=== PATIENT | male | born 1935 | race Caucasian/White ===

== ENCOUNTER 2016-11-10 06:37 | Day surgery (SDC) | payer OTHER ==
[2016-11-10] MEDS ORDERED: NS 500 ML IV 500 ML IV ONE (07:28)
[2016-11-10] MEDS ORDERED: TETRACAINE 0.5% OPHTH 1 DOSE AFFEYE ONE ×4 (07:30→10:05)
[2016-11-10] MEDS ORDERED: VIGAMOX 0.5% OPHTH 1 DOSE AFFEYE ONE ×5 (07:35→10:17)
[2016-11-10] MEDS ORDERED: PROLENSA OPHTH 1 DOSE AFFEYE ONE (07:46)
[2016-11-10] MEDS ORDERED: ALPHAGAN-P OPHTH 1 DOSE AFFEYE ONE (07:47)
[2016-11-10] MEDS ORDERED: CYCLOGYL 1% OPHTH 1 DOSE OP ONE ×3 (07:48→07:50)
[2016-11-10] MEDS ORDERED: AK-DILATE 2.5% OPHTH 1 DOSE OP ONE ×3 (07:48→07:50)
[2016-11-10] MEDS ORDERED: MYDRIACIL OPHTH 1 DOSE AFFEYE ONE ×3 (07:48→07:50)
[2016-11-10] MEDS ORDERED: BETADINE OPHTH SOLN 5% EACHEYE ONE (09:54)
[2016-11-10] MEDS ORDERED: ADRENALINE CHL INJ IJ ONE ×2 (10:00→10:05)
[2016-11-10] MEDS ORDERED: DUOVISC IO ONE ×2 (10:00→10:05)
[2016-11-10] MEDS ORDERED: XYLOCAINE-MPF 1% IJ ONE ×2 (10:00→10:05)
[2016-11-10] MEDS ORDERED: BSS OPHTH (PLAIN) 500 ML with VANCOMYCIN HCL 500 MG VIAL 25 MG, ADRENALINE CHL INJ 1 MG IR ONE ×6 (10:00)
[2016-11-10 12:01] VITALS: BP 164/87
== END 2016-11-10 10:45 | disposition home or self-care (01) ==
LOC: SURG1 06:37
PROVIDERS: ATTEND Ophthalmology
PROC: 08RJ3JZ Replacement of Right Lens with Synthetic Substitute, Percutaneous Approach (ICD-10-PCS; principal; 2016-11-10 10:30)
PROC: 08DJ3ZZ Extraction of Right Lens, Percutaneous Approach (ICD-10-PCS; principal; 2016-11-10 10:30)
DX: H25.11 Age-related nuclear cataract, right eye (principal); H25.011 Cortical age-related cataract, right eye
CPT/HCPCS: A4217; J0170; J3370

== ENCOUNTER 2016-12-01 10:19 | Day surgery (SDC) | payer OTHER ==
[2016-12-01] MEDS ORDERED: TETRACAINE 0.5% OPHTH 1 DOSE AFFEYE ONE ×4 (10:35→14:41)
[2016-12-01] MEDS ORDERED: NS 500 ML IV 500 ML IV ONE (10:36)
[2016-12-01] MEDS ORDERED: VIGAMOX 0.5% OPHTH 1 DOSE AFFEYE ONE ×5 (10:36→14:59)
[2016-12-01] MEDS ORDERED: PROLENSA OPHTH 1 DOSE AFFEYE ONE (10:48)
[2016-12-01] MEDS ORDERED: ALPHAGAN-P OPHTH 1 DOSE AFFEYE ONE (10:49)
[2016-12-01] MEDS ORDERED: CYCLOGYL 1% OPHTH 1 DOSE OP ONE ×4 (10:50→10:53)
[2016-12-01] MEDS ORDERED: MYDRIACIL OPHTH 1 DOSE AFFEYE ONE ×4 (10:50→10:53)
[2016-12-01] MEDS ORDERED: AK-DILATE 2.5% OPHTH 1 DOSE OP ONE ×4 (10:50→10:53)
[2016-12-01] MEDS ORDERED: BETADINE OPHTH SOLN 5% EACHEYE ONE (14:23)
[2016-12-01] MEDS ORDERED: ADRENALINE CHL INJ IJ ONE ×2 (14:26→14:41)
[2016-12-01] MEDS ORDERED: XYLOCAINE-MPF 1% IJ ONE ×2 (14:26→14:41)
[2016-12-01] MEDS ORDERED: BSS OPHTH (PLAIN) 500 ML with VANCOMYCIN HCL 500 MG VIAL 25 MG, ADRENALINE CHL INJ 1 MG IR ONE ×6 (14:27)
[2016-12-01] MEDS ORDERED: DUOVISC IO ONE ×2 (14:27→14:41)
[2016-12-01 15:34] VITALS: BP 152/78
== END 2016-12-01 15:25 | disposition home or self-care (01) ==
LOC: SURG1 10:19
PROVIDERS: ATTEND Ophthalmology
PROC: 08RK3JZ Replacement of Left Lens with Synthetic Substitute, Percutaneous Approach (ICD-10-PCS; principal; 2016-12-01 18:15)
PROC: 08DK3ZZ Extraction of Left Lens, Percutaneous Approach (ICD-10-PCS; principal; 2016-12-01 18:15)
DX: H25.12 Age-related nuclear cataract, left eye (principal); H25.012 Cortical age-related cataract, left eye; H25.042 Posterior subcapsular polar age-related cataract, left eye
CPT/HCPCS: 99100; A4217; J0170; J3370

== ENCOUNTER 2016-12-15 14:54 | Observation (INO) | payer OTHER ==
[2016-12-15] MEDS ORDERED: NS 1000 ML 1,000 ML ONE (15:17)
[2016-12-15] MEDS ORDERED: NS 1000 ML 300 ML IV ONE (15:17)
--- NOTE | 2016-12-15 15:17 | DR.GENAD ---
HPI - PCP Primary Care Physician: STEFANIE - HPI Comment HPI Comment: [facility] WAS CONCERN ABOUT RAPID PULSE RATE IN PATIENT. RELATIVES HAVE ALSO NOTICE INCREASING WEAKNESS AND CONFUSION IN PATIENT. TODAY, HE FELL WEAK AND IS SOB ESPECIALLY ON EXERTION. NO FEVER. 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 - Complaint/Symptoms Chief Complaint Doctors Comments: AMS, SOB, CHEST PAIN AND GENERALIZE WEAKNESS FOR 3 DAYS. Chief Complaint:: PT C/O CHEST PAIN AND SOB THAT STARTED X 2-3 DAYS AGO. PT STATES IT IS GETTING WORSE. PT STATES HE ALSO IS HAVING A FEELING LIKE HE HAS TO URINATE, BUT HE CAN'T GO - Nurses notes reviewed Nurses Notes Review: Yes - Source History Provided: Patient - Mode of Arrival Mode of Arrival: Ambulatory - Timing Onset of Chief Complaint: 12/13/16 Came on: Suddenly - Duration Duration: Constant Duration: Days - Severity Severity: Moderate PMH - PMH Past Medical History: Yes Past Medical History: Hypertension, [place] Past Surgical History: Yes Surgical History: CABG/Valve Surgery Past Surgical History Comment: PACE/DEF MAKER - Family History History of Family Medical Conditions: Yes Family Medical History: Heart Failure, Hypertension - Social History Does any household member use tobacco: No Alcohol Use: None Do you use any recreational Drugs:: No Lives With: Family Lives Where: Home - infectious screening In the last 2 months have you had wt loss of >10#?: NO Have you had fever, night sweats or hemotysis?: No Have you traveled outside the country in the last 6 months?: No Isolation: Standard ROS - Review of Systems Constitutional: Weakness, Fatigue, Loss of Appetite. negative: Chills, Fever Eyes: No Symptoms Reported. negative: Eye Pain, Discharge ENTM: No Symptoms Reported. negative: Ear Pain, Nose Discharge, Nose Congestion , Throat Pain Respiratoy: Non-Productive Cough, Short of Breath, Wheezing. negative: Productive Cough, Hemoptysis Cardiovascular: Chest Pain, Palpitations. negative: Syncope Gastrointestinal/Abdominal: Nausea. negative: Abdominal Pain, Diarrhea, Vomiting Genitourinary: negative: Dysuria, Hematuria Neurological: Headache, Weakness, Dizziness Musculoskeletal: Muscle Pain Integumentary: No Symptoms Reported Hematologic/Lymphatic: Easy Bruising Endocrine: No Symptoms Reported All Other Systems: Reviewed and Negative PE - Vital Signs Vitals: Temperature 97.8 F Pulse Rate [Right Radial] 116 Pulse Rate 121 Respiratory Rate 22 Blood Pressure [Left Arm] 94/65 Blood Pressure [Right Arm] 133/63 Blood Pressure 106/66 O2 Sat by Pulse Oximetry 100 - General Limitations: Altered Mental Status General Appearance: Alert, In Distress - Head Head Exam: Normal Inspection - Eyes Eye exam: Normal Appearance - ENT ENT Exam: Normal External Ear Exam External Ear Exam: Normal External Inspection TM/Canal Exam: Bilateral Normal Nose Exam: Normal Nose Exam Mouth Exam: Normal Inspection Throat Exam: Normal Inspection - Neck Neck Exam: Trachea Midline. negative: Tenderness, Meningismus, Lymphadenopathy - Chest Chest Inspection: Symmetric Chest Wall Rise - Respiratory Respiratory Exam: Respiratory Distress Respiratory Exam: Bilateral Wheezing, Bilateral Rhonchi, Upper Rhonchi, Lower Wheezing, Lower Rhonchi - Cardiovascular Cardiovascular Exam: Regular Rate, Normal Rhythm, Normal Heart Sounds - Abdominal Exam Abdominal Exam: Normal Bowel Sounds, Soft. negative: Tenderness - Extremities Extremities Exam: Normal Inspection - Back Back Exam: Normal Inspection - Neurologic Neurological Exam: Alert - Psychiatric Psychiatric Exam: Normal Affect, Normal Mood - Skin Skin Exam: Normal Color MDM - Additional Information Additional Information Obtained From: Family - Differential Diagnosis Differential Diagnosis: RESPIRATORY DISTRESS, CHF, PNEUMONIA, HYPOTENSION CH Course - Treatment Treatment: SEE ORDERS. - Consultation Consultation Comments: DISCUSS PATIENT WITH DR. WATTS . HE WILL ADMIT PATIENT. - Education/Counseling Education/Counseling: Patient, Family, Education Educated On: Treatment, Diagnosis, Needs for Follow Up ROR - Labs Reviewed Laboratory Results Reviewed?: Yes Result Diagrams: 12/16/16 05:50 12/16/16 05:50 Laboratory: WBC 8.1 X10^3/uL (3.6-10.0) 12/15/16 15:10 RBC 4.21 X10^6/uL (4.7-6.0) L 12/15/16 15:10 Hgb 13.2 g/dL (13.5-18.0) L 12/15/16 15:10 Hct 39.5 % (42.0-54.0) L 12/15/16 15:10 MCV 93.9 fL (80.0-100.0) 12/15/16 15:10 MCH 31.5 pg (27.0-34.0) 12/15/16 15:10 MCHC 33.5 g/dL (33.0-35.0) 12/15/16 15:10 RDW 13.2 % (11.6-16.5) 12/15/16 15:10 Plt Count 222 X10^3/uL (150.0-450.0) 12/15/16 15:10 MPV 8.2 fL (7.4-11.0) 12/15/16 15:10 Neut % 57.6 % (42.0-75.0) 12/15/16 15:10 Lymph % 28.3 % (21.0-51.0) 12/15/16 15:10 [place] % 11.7 % (0.0-13.0) 12/15/16 15:10 Eos % 1.7 % (0.9-2.9) 12/15/16 15:10 Baso % 0.7 % (0.2-1.0) 12/15/16 15:10 Neut # 4.6 x10^3/uL (2.2-4.8) 12/15/16 15:10 Lymph # 2.3 X10^3/uL (1.3-2.9) 12/15/16 15:10 [place] # 0.9 x10^3/uL (0.3-0.8) H 12/15/16 15:10 Eos # 0.1 x10^3/uL (0.0-0.2) 12/15/16 15:10 Baso # 0.1 X10^3/uL (0.0-0.1) 12/15/16 15:10 Absolute Nucleated RBC 0.0 /100WBC 12/15/16 15:10 Sodium 144 mmol/L (136-145) 12/15/16 15:10 Corrected Sodium 145 mmol/L (136-145) 12/15/16 15:10 Potassium 4.0 mmol/L (3.5-5.1) 12/15/16 15:10 Chloride 106 mmol/L (98-107) 12/15/16 15:10 Carbon Dioxide 27.9 mmol/L (21-32) 12/15/16 15:10 BUN 23 mg/dL (7-18) H 12/15/16 15:10 Creatinine 1.58 mg/dL (0.70-1.30) H 12/15/16 15:10 Est GFR (MDRD) Af Amer 54 (>60) L 12/15/16 15:10 Est GFR (MDRD) Non-Af 45 (>60) L 12/15/16 15:10 Glucose 123 mg/dL (65-99) H 12/15/16 15:10 Calcium 8.7 mg/dL (8.5-10.1) 12/15/16 15:10 Corrected Calcium 9.3 mg/dL (8.5-10.1) 12/15/16 15:10 Total Bilirubin 0.60 mg/dL (0.2-1.0) 12/15/16 15:10 AST 24 Units/L (15-37) 12/15/16 15:10 ALT 26 Units/L (12-78) 12/15/16 15:10 Alkaline Phosphatase 75 Units/L (46-116) 12/15/16 15:10 Creatine Kinase 95 Units/L (39-308) 12/15/16 15:10 CK-MB (CK-2) 1.3 ng/mL (0-4.0) 12/15/16 15:10 CK/CKMB % Calc 1.4 % (<4) 12/15/16 15:10 Troponin I 0.11 ng/mL (0-1.5) 12/15/16 15:10 B-Natriuretic Peptide 894 pg/mL (0-79) H* 12/15/16 15:10 Total Protein 7.0 g/dL (6.4-8.2) 12/15/16 15:10 Albumin 3.3 g/dL (3.4-5.0) L 12/15/16 15:10 Globulin 3.7 g/dL (2.5-4.5) 12/15/16 15:10 Albumin/Globulin Ratio 0.9 Ratio (1.1-2.1) L 12/15/16 15:10 - XRAY XRAY Interpreted by: Radiologist XRAY Findings: REPORT DISCUSS WITH PATIENT. - EKG Rhythm: ST (EKG NOTED) - Diagnosis Discharge Problem: Hypotension, Chest pain, Dyspnea, Tachycardia - Discharge Plan Disposition: HOME, SELF-CARE Condition: Stable - Follow ups/Referrals - Instructions
[2016-12-15 15:24] LABS: BASOPHILS # (AUTO) 0.1 X10^3/uL (0.0-0.1); BASOPHILS % (AUTO) 0.7 % (0.2-1.0); EOSINOPHILS # (AUTO) 0.1 x10^3/uL (0.0-0.2); EOSINOPHILS % (AUTO) 1.7 % (0.9-2.9); HEMATOCRIT 39.5 % (42.0-54.0); HEMOGLOBIN 13.2 g/dL (13.5-18.0); LYMPHOCYTES # (AUTO) 2.3 X10^3/uL (1.3-2.9); LYMPHOCYTES % (AUTO) 28.3 % (21.0-51.0); MEAN CORPUSCULAR HEMOGLOBIN 31.5 pg (27.0-34.0); MEAN CORPUSCULAR HGB CONC 33.5 g/dL (33.0-35.0); MEAN CORPUSCULAR VOLUME 93.9 fL (80.0-100.0); MEAN PLATELET VOLUME 8.2 fL (7.4-11.0); MONOCYTES # (AUTO) 0.9 x10^3/uL (0.3-0.8); MONOCYTES % (AUTO) 11.7 % (0.0-13.0); NEUTROPHILS # (AUTO) 4.6 x10^3/uL (2.2-4.8); NEUTROPHILS % (AUTO) 57.6 % (42.0-75.0); PLATELET COUNT 222 X10^3/uL (150.0-450.0); RED BLOOD COUNT 4.21 X10^6/uL (4.7-6.0); RED CELL DISTRIBUTION WIDTH 13.2 % (11.6-16.5); WHITE BLOOD COUNT 8.1 X10^3/uL (3.6-10.0)
[2016-12-15 15:40] LABS: CALCIUM 8.7 mg/dL (8.5-10.1); CARBON DIOXIDE 27.9 mmol/L (21-32); CREATININE 1.58 mg/dL (0.70-1.30); TROPONIN I 0.11 ng/mL (0-1.5)
--- NOTE | 2016-12-15 15:48 | RAD ---
HISTORY: Chest pain Study: Chest one view Comparison: September 17, 2015 Findings: There is a pacemaker present on the left obscuring a portion of the lateral aspect of the left lung. The patient is status post median sternotomy and CABG. The heart is enlarged. No congestive heart f ailure is noted. No acute alveolar infiltrates or pleural effusions are identified. IMPRESSION: Cardiomegaly without congestive heart failure Reported By:
[2016-12-15 15:55] LABS: ALBUMIN 3.3 g/dL (3.4-5.0); CKMB % 1.4 % (<4); COR CA(FOR HYPOALB) 9.3 mg/dL (8.5-10.1); CREATINE KINASE MB 1.3 ng/mL (0-4.0)
[2016-12-15] MEDS: NS 1000 ML 1,000 ML IV SCH (18:02)
[2016-12-15] MEDS ORDERED: HumuLIN R SC PRN (18:22)
[2016-12-15 18:45] LABS: CKMB % 1.5 % (<4); CREATINE KINASE MB 1.2 ng/mL (0-4.0); TROPONIN I 0.12 ng/mL (0-1.5)
[2016-12-15 19:49] VITALS: BMI 30.5
[2016-12-15] MEDS ORDERED: LOVENOX INJ 60 MG SYR SC SCH (21:00)
[2016-12-15] MEDS: LOVENOX INJ 80 MG SYR SC SCH (21:10)
[2016-12-15 23:00] LABS: BILIRUBIN,URINE NEGATIVE (NEGATIVE); BLOOD/HEMOGLOBIN,URINE 1+ (NEGATIVE); GLUCOSE, URINE NEGATIVE (NEGATIVE); KETONES,URINE 1+ (NEGATIVE); LEUKOCYTE ESTERASE ,URINE 1+ (NEGATIVE); NITRITES,URINE NEGATIVE (NEGATIVE); PROTEIN,URINE 2+ (NEGATIVE); UROBILINOGEN,URINE NORMAL (NORMAL)
[2016-12-15 23:07] LABS: APPEARANCE,URINE CLEAR (CLEAR); COLOR,URINE YELLOW (YELLOW); RBC,URINE 0-2 /HPF (NEGATIVE); SQUAMOUS EPITHELIAL CELL,UR RARE /HPF (NEGATIVE)
[2016-12-15 23:08] LABS: BACTERIA,URINE 1+ /HPF (NEGATIVE); MUCUS,URINE FEW /HPF (NEGATIVE)
[2016-12-16] MEDS: NS 1000 ML 1,000 ML IV SCH ×4 (00:50→20:29)
[2016-12-16 01:30] LABS: CKMB % 1.7 % (<4); TROPONIN I 0.09 ng/mL (0-1.5)
[2016-12-16 06:20] LABS: BASOPHILS % (AUTO) 0.5 % (0.2-1.0); EOSINOPHILS # (AUTO) 0.2 x10^3/uL (0.0-0.2); EOSINOPHILS % (AUTO) 2.5 % (0.9-2.9); HEMATOCRIT 36.3 % (42.0-54.0); HEMOGLOBIN 12.3 g/dL (13.5-18.0); LYMPHOCYTES # (AUTO) 1.7 X10^3/uL (1.3-2.9); LYMPHOCYTES % (AUTO) 23.7 % (21.0-51.0); MEAN CORPUSCULAR HEMOGLOBIN 31.6 pg (27.0-34.0); MEAN CORPUSCULAR HGB CONC 33.8 g/dL (33.0-35.0); MEAN CORPUSCULAR VOLUME 93.3 fL (80.0-100.0); MEAN PLATELET VOLUME 8.3 fL (7.4-11.0); MONOCYTES # (AUTO) 0.8 x10^3/uL (0.3-0.8); NEUTROPHILS # (AUTO) 4.6 x10^3/uL (2.2-4.8); NEUTROPHILS % (AUTO) 62.3 % (42.0-75.0); PLATELET COUNT 195 X10^3/uL (150.0-450.0); RED BLOOD COUNT 3.89 X10^6/uL (4.7-6.0); RED CELL DISTRIBUTION WIDTH 13.3 % (11.6-16.5); WHITE BLOOD COUNT 7.4 X10^3/uL (3.6-10.0)
[2016-12-16 06:29] LABS: ALANINE AMINOTRANSFERASE 24 Units/L (12-78); ALBUMIN 2.9 g/dL (3.4-5.0); ALKALINE PHOSPHATASE 58 Units/L (46-116); ASPARTATE AMINO TRANSFERASE 18 Units/L (15-37); BLOOD UREA NITROGEN 20 mg/dL (7-18); CALCIUM 8.2 mg/dL (8.5-10.1); CARBON DIOXIDE 27.5 mmol/L (21-32); CHLORIDE 109 mmol/L (98-107); CHOL/HDL RATIO 3.7 (0.0-5.0); CHOLESTEROL 103 mg/dL (0-200); COR CA(FOR HYPOALB) 9.1 mg/dL (8.5-10.1); CREATININE 1.08 mg/dL (0.70-1.30); GLUCOSE 98 mg/dL (65-99); HDL CHOLESTEROL 28 mg/dL (40-60); SODIUM 145 mmol/L (136-145); TOTAL PROTEIN 6.5 g/dL (6.4-8.2); TRIGLYCERIDES 60 mg/dL (0-150); eGFR BLACK RACES > 60 (>60); eGFR NON BLACK RACES > 60 (>60)
[2016-12-16 09:02] LABS: CKMB % 1.8 % (<4); CREATINE KINASE MB 1.1 ng/mL (0-4.0); TROPONIN I 0.07 ng/mL (0-1.5)
[2016-12-16] MEDS: LOVENOX INJ 80 MG SYR SC SCH ×2 (09:21→20:28)
[2016-12-16] MEDS: TOPROL XL PO SCH (10:48)
[2016-12-16] MEDS ORDERED: [UNRECOGNIZED DRUG - OTHER] PO SCH (13:00)
[2016-12-16] MEDS: LASIX PO SCH (14:22)
[2016-12-16] MEDS: PLAVIX PO SCH (14:22)
[2016-12-16] MEDS: MICRO K EXTEN CAP 10 MEQ PO SCH (14:22)
--- NOTE | 2016-12-16 16:43 | DR.H&P ---
H&P - History & Physical for Day of: H&P Date: 12/15/16 - Chief Complaint Chief Complaint: CHEST PAIN, HYPOTENSION, TACHYCARDIA, SHORTNESS OF BREATH - Allergies Allergies/Adverse Reactions: Allergies Allergy/AdvReac Type Severity Reaction Status Date / Time No Known Drug Allergy Allergy Verified 01/01/14 10:56 - History of Present Illness History of Present Illness: THIS IS AN 81 YEAR OLD MALE, WHO IS A PATIENT OF OURS. HE PRESENTS TO OUR EMERGENCY ROOM WITH COMPLAINTS OF TACHYCARDIA, CHEST PAIN, SHORTNESS OF BREATH, AND CONFUSION. FAMILY REPORTS SYMPTOMS HAVE BEEN ON- GOING FOR THREE DAYS. PATIENT REPORTS SYMPTOMS HAVE WORSENED. HEART RATE ON ARRIVAL WAS 121. PATIENT REPORTED HE HAD QUIT TAKING ALL OF HIS MEDICATIONS SOME TIME AGO. BLOOD PRESSURE IS 85/62 IN THE ER. PATIENT REPORTS THE MEDICATIONS MADE HIM NAUSEATED. LABS AND EKG WERE OBTAINED. EKG: SINUS TACHYCARDIA, INCOMPLETE LBBB, RATE 119. CHEST XRAY REPORTS CARDIOMEGALY WITHOUT CHF. CBC WNL EXCEPT: H/H 13.2/39.5. CMP WNL EXCEPT: BUN/CREAT 23/1.58 , GFR 45, GLUCOSE 123, ALBUMIN 3.3. BNP 894. CARDIAC ENZYMES WNL. URINALYSIS WNL. PATIENT RECEIVED AN IV FLUID BOLUS IN ER. WE WILL ADMIT PATIENT FOR FURTHER EVALUATION AND TREATMENT. - Past Medical History Past Medical History: CVA, Hypertension, [place] Additional Medical History: Vision Deficit, Hard of Hearing, Cataracts, Previous Blood Transfusion (after Trama Accident), Skin Cancer - Past Surgical History Surgical History: Angioplasty/Stents, CABG/Valve Surgery Additional Surgical History: Pacemaker/Defibrillator, Facial Recontruction after Trauma Accident - Family History Family Medical History: Heart Failure, Hypertension - Social History Does patient currently use any type of tobacco product: No Have you used tobacco products in the last 12 months: No Type of Tobacco Use: None Does any household member use tobacco: No Alcohol Use: None Drug Use: None - Medications Home Medications: Amlodipine Besylate [NORVASC 5 MG *] 1 tab PO DAILY 09/15/15 Clopidogrel Bisulfate [PLAVIX TAB 75 MG *] 1 tab PO DAILY 09/15/15 Furosemide [LASIX TAB 20 MG *] 1 tab PO DAILY 09/15/15 Gabapentin 1 cap PO HS 09/15/15 Isosorbide Mononitrate [Isosorbide Mononitrate ER] 1 tab PO DAILY 09/15/15 Magnesium 420 tab PO BID 09/15/15 Metoprolol Tartrate [LOPRESSOR 25 MG *] 12.5 mg PO BID 09/15/15 Potassium Chloride [K-Tab] 1 tab PO DAILY 09/15/15 Lisinopril [ZESTRIL *] 10 mg PO BID 12/15/16 - Review of Systems Constitutional: Weakness, Malaise Eyes: No Symptoms Reported. denies: Pain, Vision Change, Conjunctivae Inflammation, Eyelid Inflammation, Redness ENT: No Symptoms Reported. denies: Ear Pain, Ear Discharge, Nose Pain, Nose Discharge, Nose Congestion, Mouth Pain, Mouth Swelling, Throat Pain, Throat Swelling Respiratory: Shortness of Breath, SOB with Excertion. denies: Cough, Hemoptysis , Pleuritic Pain, Sputum, Wheezing Cardiovascular: Chest Pain, Other (Tachycardia). denies: Palpitations, Orthopnea, Paroxysmal Noc. Dyspnea, Edema, Light Headedness Gastrointestinal: No Symptoms Reported. denies: Nausea, Vomiting Genitourinary: No Symptoms Reported. denies: Dysuria, Frequency, Incontinence, Hematuria, Retention Musculoskeletal: No Symptoms Reported. denies: Shoulder Pain, Arm Pain, Back Pain, Hand Pain, Leg Pain, Foot Pain, Neck Pain Skin: No Symptoms Reported. denies: Rash, Lesions, Jaundice, Bruising, Wound, Ecchymosis Neurological: Weakness, Confusion. denies: Numbness, Incoordination, Change in Speech - Physical Exam Vital Signs: Temperature 98.8 F Pulse Rate [Right Radial] 122 Respiratory Rate 30 Blood Pressure [Right Arm] 138/97 O2 Sat by Pulse Oximetry 98 Oriented: Person, Place Eyes: Normal. negative: Blurred Vision, Diplopia, Discharge, Pain, Redness, Photophobia Ear: Normal. negative: Swelling, Ecchymosis, Hemotypanum, Abrasion, Laceration Nose: Normal. negative: Injected, Discharge, Blood Throat: Dry. negative: Tonsillar Hypertrophy, Red, Exudate Respiratory: Clear Throughout Cardiovascular: Normal. negative: Murmur, Edema : Normal. negative: Dysuria, Frequency, Discharge, Testicular Pain Auscultation: Bowel Sounds: Decreased. negative: Bruit Tenderness: Normal. negative: Rebound, Guarding, Rigidity Skin: Decreased [place]. negative: Diaphoresis, Wound, Bruising, Ecchymosis Musculoskeletal: Instability Psychiatric: Normal Mood Description: Calm Affect: Normal Speech Pattern: Clear, Inappropriate - Assessment/Plan (1) Chest pain Qualifiers: Chest pain type: precordial pain Ischemic chest pain type: I Qualified Code(s): R07.2 - Precordial pain Status: Acute Plan: ADMIT PATIENT, MONITOR ON TELEMETRY, OBTAIN SERIAL CARDIAC ENZYMES AND EKG 'S, SUPPLEMENTAL OXYGEN, MONITOR. (2) Dyspnea Qualifiers: Dyspnea type: shortness of breath Qualified Code(s): R06.02 - Shortness of breath Status: Acute Plan: ABOVE. (3) Hypotension Qualifiers: Hypotension type: idiopathic hypotension Trimester: T Qualified Code(s): I95.0 - Idiopathic hypotension Status: Acute Plan: MONITOR NIBP, HOLD ANTI-HYPERTENSIVES. (4) Tachycardia Status: Acute Plan: MONITOR ON TELEMETRY. (5) CHF (congestive heart failure) Qualifiers: Congestive heart failure type: C Congestive heart failure chronicity: C Status: Chronic (6) COPD (chronic obstructive pulmonary disease) Qualifiers: COPD type: C Chronic bronchitis type: C Emphysema type: E Status: Chronic (7) Hypertension Qualifiers: Hypertension type: essential hypertension Qualified Code(s): I10 - Essential (primary) hypertension Status: Chronic (8) Status cardiac pacemaker Status: Chronic (9) Hx of myocardial infarction Status: Chronic
--- NOTE | 2016-12-16 17:14 | PCM.PROG ---
Progress Note - Progress Note for Day of Date: 12/16/16 - Subjective Subjective: PATIENT IS NOTED WITH TACHYCARDIA UPON ROUNDS. HEART RATE IS IN THE 120'S. PATIENT REPORTS CHEST PAIN CONTINUES THIS MORNING. PATIENT ADMITS TO NON-COMPLIANCE OF HOME MEDICATIONS DUE TO INCREASED NAUSEA. PATIENT FURTHER REPORTS THAT HIS APPETITE WAS POOR WITH NAUSEA. WE DISCUSS CHANGING MEDICATIONS TO CONTROL BLOOD PRESSURE AND PULSE. PATIENT VOICES UNDERSTANDING. BLOOD PRESSURE HAS IMPROVED TO 140/92. CARDIAC ENZYMES WNL. EKG: JUCTIONAL TACHYCARDIA, LBBB, RATE 123. PATIENT IS SHORT OF BREATH AT REST AND CONTINUES ON SUPPLEMENTAL OXYGEN. CBC WNL EXCEPT: H/H 12.3/36.3. CMP WNL EXCEPT: CHL 109 , BUN 20, CALCIUM 8.2, ALBUMIN 2.9. FLP WNL. WE WILL START PATIENT ON PLAVIX AND TOPROL XL TODAY AND MONITOR. WE WILL CONTINUE TO MONITOR ON TELEMETRY AND FOLLOW UP IN AN WITH LABS. - Past Medical Family Social History Past Med/Fam/Surg Hx: No changes since H&P Allergies: Allergies No Known Drug Allergy Allergy (Verified 01/01/14 10:56) - Review of Systems ROS: No change since H&P - Vital Signs and I&O's Vital Signs: Temperature 98.8 F Pulse Rate [Right Radial] 122 Respiratory Rate 30 Blood Pressure [Right Arm] 138/97 O2 Sat by Pulse Oximetry 98 Intake and Output: Intake & Output 12/14/16 12/15/16 12/16/16 12/17/16 11:59 11:59 11:59 11:59 Intake Total 1318 1186 Output Total 200 Balance 1118 1186 - Physical Exam Oriented: Normal, Time, Person, Place Eyes: Normal. negative: Blurred Vision, Diplopia, Discharge, Pain, Redness, Photophobia Ear: Normal. negative: Swelling, Ecchymosis, Hemotypanum, Abrasion, Laceration Nose: Normal. negative: Injected, Discharge, Blood Throat: Dry. negative: Tonsillar Hypertrophy, Red, Exudate Respiratory: Normal Cardiovascular: Normal. negative: Murmur, Edema : Normal. negative: Dysuria, Frequency, Discharge, Testicular Pain Auscultation: Bowel Sounds: Decreased. negative: Bruit Palpation: Normal. negative: Spleen Enlarged, Liver Enlarged, Mass Pulsatile Tenderness: Normal. negative: Rebound, Guarding, Rigidity Skin: Normal. negative: Diaphoresis, Wound, Bruising, Ecchymosis Musculoskeletal: Instability Psychiatric: Normal Mood Description: Calm Affect: Normal Speech Pattern: Clear, Appropriate - Laboratory and Diagnostics Result Diagrams: 12/16/16 05:50 12/16/16 05:50 Labs: Laboratory WBC 7.4 X10^3/uL (3.6-10.0) 12/16/16 05:50 RBC 3.89 X10^6/uL (4.7-6.0) L 12/16/16 05:50 Hgb 12.3 g/dL (13.5-18.0) L 12/16/16 05:50 Hct 36.3 % (42.0-54.0) L 12/16/16 05:50 MCV 93.3 fL (80.0-100.0) 12/16/16 05:50 MCH 31.6 pg (27.0-34.0) 12/16/16 05:50 MCHC 33.8 g/dL (33.0-35.0) 12/16/16 05:50 RDW 13.3 % (11.6-16.5) 12/16/16 05:50 Plt Count 195 X10^3/uL (150.0-450.0) 12/16/16 05:50 MPV 8.3 fL (7.4-11.0) 12/16/16 05:50 Neut % 62.3 % (42.0-75.0) 12/16/16 05:50 Lymph % 23.7 % (21.0-51.0) 12/16/16 05:50 [place] % 11.0 % (0.0-13.0) 12/16/16 05:50 Eos % 2.5 % (0.9-2.9) 12/16/16 05:50 Baso % 0.5 % (0.2-1.0) 12/16/16 05:50 Neut # 4.6 x10^3/uL (2.2-4.8) 12/16/16 05:50 Lymph # 1.7 X10^3/uL (1.3-2.9) 12/16/16 05:50 [place] # 0.8 x10^3/uL (0.3-0.8) 12/16/16 05:50 Eos # 0.2 x10^3/uL (0.0-0.2) 12/16/16 05:50 Baso # 0.0 X10^3/uL (0.0-0.1) 12/16/16 05:50 Absolute Nucleated RBC 0.0 /100WBC 12/16/16 05:50 INR Target Range - 12/16/16 05:50 INR 1.26 (0.8-1.3) 12/16/16 05:50 PTT 42.4 SECONDS (22.9-36.5) H 12/16/16 05:50 PTT Comment - 12/16/16 05:50 Sodium 145 mmol/L (136-145) 12/16/16 05:50 Corrected Sodium TNP 12/16/16 05:50 Potassium 3.9 mmol/L (3.5-5.1) 12/16/16 05:50 Chloride 109 mmol/L (98-107) H 12/16/16 05:50 Carbon Dioxide 27.5 mmol/L (21-32) 12/16/16 05:50 BUN 20 mg/dL (7-18) H 12/16/16 05:50 Creatinine 1.08 mg/dL (0.70-1.30) 12/16/16 05:50 Est GFR (MDRD) Af Amer > 60 (>60) 12/16/16 05:50 Est GFR (MDRD) Non-Af > 60 (>60) 12/16/16 05:50 Glucose 98 mg/dL (65-99) 12/16/16 05:50 Calcium 8.2 mg/dL (8.5-10.1) L 12/16/16 05:50 Corrected Calcium 9.1 mg/dL (8.5-10.1) 12/16/16 05:50 Total Bilirubin 0.40 mg/dL (0.2-1.0) 12/16/16 05:50 AST 18 Units/L (15-37) 12/16/16 05:50 ALT 24 Units/L (12-78) 12/16/16 05:50 Alkaline Phosphatase 58 Units/L (46-116) 12/16/16 05:50 Creatine Kinase 61 Units/L (39-308) 12/16/16 05:50 CK-MB (CK-2) 1.1 ng/mL (0-4.0) 12/16/16 05:50 CK/CKMB % Calc 1.8 % (<4) 12/16/16 05:50 Troponin I 0.07 ng/mL (0-1.5) 12/16/16 05:50 B-Natriuretic Peptide 894 pg/mL (0-79) H* 12/15/16 15:10 Total Protein 6.5 g/dL (6.4-8.2) 12/16/16 05:50 Albumin 2.9 g/dL (3.4-5.0) L 12/16/16 05:50 Globulin 3.6 g/dL (2.5-4.5) 12/16/16 05:50 Albumin/Globulin Ratio 0.8 Ratio (1.1-2.1) L 12/16/16 05:50 Triglycerides 60 mg/dL (0-150) 12/16/16 05:50 Cholesterol 103 mg/dL (0-200) 12/16/16 05:50 LDL Cholesterol, Calc 63 mg/dL (0-100) 12/16/16 05:50 HDL Cholesterol 28 mg/dL (40-60) L 12/16/16 05:50 Cholesterol/HDL Ratio 3.7 (0.0-5.0) 12/16/16 05:50 Specimen Type Clean catch urine 12/15/16 22:48 Urine Color Yellow (YELLOW) 12/15/16 22:48 Urine Appearance Clear (CLEAR) 12/15/16 22:48 Urine pH 5.0 (5.0 - 8.0) 12/15/16 22:48 Ur Specific [place] 1.025 (1.000-1.030) 12/15/16 22:48 Urine Protein 2+ (NEGATIVE) 12/15/16 22:48 Urine Glucose (UA) Negative (NEGATIVE) 12/15/16 22:48 Urine Ketones 1+ (NEGATIVE) 12/15/16 22:48 Urine Occult Blood 1+ (NEGATIVE) 12/15/16 22:48 Urine Nitrite Negative (NEGATIVE) 12/15/16 22:48 Urine Bilirubin Negative (NEGATIVE) 12/15/16 22:48 Urine Urobilinogen Normal (NORMAL) 12/15/16 22:48 Ur Leukocyte Esterase 1+ (NEGATIVE) 12/15/16 22:48 Urine RBC 0-2 /HPF (NEGATIVE) 12/15/16 22:48 Urine WBC 3-5 /HPF (NEGATIVE) 12/15/16 22:48 Ur Squamous Epith Cells Rare /HPF (NEGATIVE) 12/15/16 22:48 Urine Bacteria 1+ /HPF (NEGATIVE) 12/15/16 22:48 Urine Mucus Few /HPF (NEGATIVE) 12/15/16 22:48 Ur Culture Indicated? No/not indicated 12/15/16 22:48 - Plan (1) Chest pain Status: Acute Qualifiers: Chest pain type: precordial pain Ischemic chest pain type: I Qualified Code(s): R07.2 - Precordial pain Plan: CONTINUE MONITOR ON TELEMETRY, SUPPLEMENTAL OXYGEN, MONITOR. (2) Dyspnea Status: Acute Qualifiers: Dyspnea type: shortness of breath Qualified Code(s): R06.02 - Shortness of breath Plan: ABOVE. (3) Tachycardia Status: Acute Plan: MONITOR ON TELEMETRY. (4) Hypertension Status: Chronic Qualifiers: Hypertension type: essential hypertension Qualified Code(s): I10 - Essential (primary) hypertension Plan: START TOPROL XL, PLAVIX, MONITOR. (5) CHF (congestive heart failure) Status: Chronic Qualifiers: Congestive heart failure type: C Congestive heart failure chronicity: C (6) COPD (chronic obstructive pulmonary disease) Status: Chronic Qualifiers: COPD type: C Chronic bronchitis type: C Emphysema type: E (7) Status cardiac pacemaker Status: Chronic (8) Hx of myocardial infarction Status: Chronic (9) Hypotension Status: Resolved Qualifiers: Hypotension type: idiopathic hypotension Trimester: T Qualified Code(s): I95.0 - Idiopathic hypotension
[2016-12-16] MEDS ORDERED: NEURONTIN CAP 300 MG PO SCH (21:00)
[2016-12-17] MEDS: NS 1000 ML 1,000 ML IV SCH (04:51)
[2016-12-17 05:17] LABS: BASOPHILS % (AUTO) 0.4 % (0.2-1.0); EOSINOPHILS # (AUTO) 0.1 x10^3/uL (0.0-0.2); EOSINOPHILS % (AUTO) 1.8 % (0.9-2.9); HEMATOCRIT 38.6 % (42.0-54.0); HEMOGLOBIN 12.7 g/dL (13.5-18.0); LYMPHOCYTES # (AUTO) 1.7 X10^3/uL (1.3-2.9); LYMPHOCYTES % (AUTO) 20.9 % (21.0-51.0); MEAN CORPUSCULAR HEMOGLOBIN 31.2 pg (27.0-34.0); MEAN CORPUSCULAR VOLUME 94.6 fL (80.0-100.0); MEAN PLATELET VOLUME 8.3 fL (7.4-11.0); MONOCYTES # (AUTO) 0.8 x10^3/uL (0.3-0.8); MONOCYTES % (AUTO) 9.5 % (0.0-13.0); NEUTROPHILS # (AUTO) 5.5 x10^3/uL (2.2-4.8); NEUTROPHILS % (AUTO) 67.4 % (42.0-75.0); PLATELET COUNT 212 X10^3/uL (150.0-450.0); RED BLOOD COUNT 4.08 X10^6/uL (4.7-6.0); RED CELL DISTRIBUTION WIDTH 13.6 % (11.6-16.5); WHITE BLOOD COUNT 8.2 X10^3/uL (3.6-10.0)
[2016-12-17 05:34] LABS: ALANINE AMINOTRANSFERASE 24 Units/L (12-78); ALKALINE PHOSPHATASE 64 Units/L (46-116); ASPARTATE AMINO TRANSFERASE 18 Units/L (15-37); BLOOD UREA NITROGEN 15 mg/dL (7-18); CALCIUM 8.4 mg/dL (8.5-10.1); CHLORIDE 109 mmol/L (98-107); COR CA(FOR HYPOALB) 9.2 mg/dL (8.5-10.1); COR NA(FOR HYPERGLY) 145 mmol/L (136-145); CREATININE 1.12 mg/dL (0.70-1.30); GLUCOSE 134 mg/dL (65-99); SODIUM 144 mmol/L (136-145); TOTAL PROTEIN 6.8 g/dL (6.4-8.2); eGFR BLACK RACES > 60 (>60); eGFR NON BLACK RACES > 60 (>60)
[2016-12-17] MEDS: LOVENOX INJ 80 MG SYR SC SCH (08:48)
[2016-12-17] MEDS: TOPROL XL PO SCH (08:49)
[2016-12-17] MEDS: MICRO K EXTEN CAP 10 MEQ PO SCH (08:49)
[2016-12-17] MEDS: LASIX PO SCH (08:49)
[2016-12-17] MEDS: PLAVIX PO SCH (08:49)
[2016-12-17] MEDS ORDERED: TOPROL XL PO ONE (10:03)
[2016-12-17 11:06] VITALS: BP 128/96
== END 2016-12-17 12:25 | disposition home or self-care (01) | DRG 313 ==
LOC: ER 15:22 → ICU 17:49
PROVIDERS: ADMIT Internal Medicine; ATTEND Internal Medicine
DX: R07.2 Precordial pain (principal); I95.0 Idiopathic hypotension; R00.0 Tachycardia, unspecified; R06.02 Shortness of breath; R53.1 Weakness; R40.4 Transient alteration of awareness; J44.9 Chronic obstructive pulmonary disease, unspecified; I10 Essential (primary) hypertension; Z95.0 Presence of cardiac pacemaker; D64.89 Other specified anemias; R79.1 Abnormal coagulation profile
CPT/HCPCS: 36415; 71010; 80053; 80061; 81001; 82550; 82553; 83880; 84484; 85025; 85610; 85730; 93005; 94760; 96365; 99284; A4216; A4222; G0378; J1650

== ENCOUNTER 2021-12-24 13:52 | Inpatient (IN) ==
[2021-12-24 16:50] LABS: BASOPHILS % (AUTO) 0.3 % (0.2-1.0); EOSINOPHILS # (AUTO) 0.1 x10^3/uL (0.0-0.2); HEMOGLOBIN 14.7 g/dL (13.5-18.0); LYMPHOCYTES # (AUTO) 1.2 X10^3/uL (1.3-2.9)
[2021-12-24 16:59] LABS: ALBUMIN 2.6 g/dL (3.4-5.0); CALCIUM 8.7 mg/dL (8.5-10.1); CARBON DIOXIDE 31.9 mmol/L (21-32); COR CA(FOR HYPOALB) 9.8 mg/dL (8.5-10.1); CREATININE 2.49 mg/dL (0.70-1.30); TOTAL PROTEIN 6.4 g/dL (6.4-8.2)
[2021-12-24 17:01] LABS: EOSINOPHILS % (AUTO) 0.8 % (0.9-2.9); HEMATOCRIT 42.8 % (42.0-54.0); LYMPHOCYTES % (AUTO) 11.3 % (21.0-51.0); MEAN CORPUSCULAR HEMOGLOBIN 32.7 pg (27.0-34.0); MEAN CORPUSCULAR HGB CONC 34.4 g/dL (33.0-35.0); MEAN CORPUSCULAR VOLUME 95.1 fL (80.0-100.0); MEAN PLATELET VOLUME 7.8 fL (7.4-11.0); NEUTROPHILS # (AUTO) 8.3 x10^3/uL (2.2-4.8); NEUTROPHILS % (AUTO) 78.6 % (42.0-75.0); RED CELL DISTRIBUTION WIDTH 14.7 % (11.6-16.5); WHITE BLOOD COUNT 10.6 X10^3/uL (3.6-10.0)
[2021-12-24 17:45] LABS: BILIRUBIN,URINE NEGATIVE (NEGATIVE); BLOOD/HEMOGLOBIN,URINE 3+ (NEGATIVE); GLUCOSE, URINE 1+ (NEGATIVE); KETONES,URINE NEGATIVE (NEGATIVE); LEUKOCYTE ESTERASE ,URINE NEGATIVE (NEGATIVE); NITRITES,URINE NEGATIVE (NEGATIVE); PROTEIN,URINE 4+ (NEGATIVE); UROBILINOGEN,URINE NORMAL (NORMAL)
[2021-12-24] MEDS: LASIX IVP SCH (17:50)
[2021-12-24 17:57] LABS: APPEARANCE,URINE CLEAR (CLEAR); BACTERIA,URINE TRACE /HPF (NEGATIVE); COLOR,URINE YELLOW (YELLOW); SQUAMOUS EPITHELIAL CELL,UR RARE /HPF (NEGATIVE)
[2021-12-24 20:35] LABS: ALBUMIN 2.5 g/dL (3.4-5.0); CALCIUM 8.5 mg/dL (8.5-10.1); CARBON DIOXIDE 29.7 mmol/L (21-32); COR CA(FOR HYPOALB) 9.7 mg/dL (8.5-10.1); CREATININE 2.43 mg/dL (0.70-1.30); MAGNESIUM 2.1 mg/dL (1.7-2.9); TOTAL PROTEIN 6.2 g/dL (6.4-8.2)
[2021-12-24] MEDS ORDERED: LASIX IVP SCH (21:00)
[2021-12-24] MEDS ORDERED: MICRO K EXTEN CAP 10 MEQ PO ONE (21:02)
[2021-12-24] MEDS ORDERED: LOVENOX INJ 60 MG SYR SC SCH (22:00)
[2021-12-24] MEDS ORDERED: PHARMACY CONSULT - LOVENOX XX SCH (22:00)
[2021-12-24] MEDS: FLEXERIL TAB 10 MG PO SCH ×2 (22:03)
--- NOTE | 2021-12-25 02:43 | RAD ---
HISTORYSOB Relevant Clinical InformationSTUDYCHEST, 1 VIEWCOMPARISONNone.FINDINGSThere is a permanent pacemaker overlying the left chest wall. The patient is status post median sternotomy. The trachea is midline. There is cardiomegaly. There is a small left pleural effusion which may be encasing a portion of the left lung. A hazy alveolar infiltrate of the periphery of the left lower lobe is also seen. The bony thorax is unremarkable.IMPRESSIONCardiomegaly, small encasing left pleural effusion and query peripheral left lower lobe infiltrate.Electronically signed by: Jolynn Puckett (December 25, 2021 02:42:39)
[2021-12-25] MEDS: FLEXERIL TAB 10 MG PO SCH ×3 (05:30→21:10)
[2021-12-25 06:11] LABS: BASOPHILS # (AUTO) 0.1 X10^3/uL (0.0-0.1); BASOPHILS % (AUTO) 0.5 % (0.2-1.0); EOSINOPHILS # (AUTO) 0.1 x10^3/uL (0.0-0.2); EOSINOPHILS % (AUTO) 1.1 % (0.9-2.9); HEMATOCRIT 42.6 % (42.0-54.0); HEMOGLOBIN 14.7 g/dL (13.5-18.0); LYMPHOCYTES # (AUTO) 1.8 X10^3/uL (1.3-2.9); LYMPHOCYTES % (AUTO) 16.5 % (21.0-51.0); MEAN CORPUSCULAR HEMOGLOBIN 32.6 pg (27.0-34.0); MEAN CORPUSCULAR HGB CONC 34.6 g/dL (33.0-35.0); MEAN CORPUSCULAR VOLUME 94.2 fL (80.0-100.0); MONOCYTES # (AUTO) 0.9 x10^3/uL (0.3-0.8); MONOCYTES % (AUTO) 8.2 % (0.0-13.0); NEUTROPHILS % (AUTO) 73.7 % (42.0-75.0); RED BLOOD COUNT 4.53 X10^6/uL (4.7-6.0); RED CELL DISTRIBUTION WIDTH 14.9 % (11.6-16.5); WHITE BLOOD COUNT 10.8 X10^3/uL (3.6-10.0)
[2021-12-25 06:35] LABS: ALBUMIN 2.4 g/dL (3.4-5.0); CALCIUM 8.4 mg/dL (8.5-10.1); CARBON DIOXIDE 28.1 mmol/L (21-32); COR CA(FOR HYPOALB) 9.7 mg/dL (8.5-10.1); CREATININE 2.02 mg/dL (0.70-1.30); TOTAL PROTEIN 6.1 g/dL (6.4-8.2)
--- NOTE | 2021-12-25 07:21 | RAD ---
HISTORYShortness of breathSTUDYChest AP [id number]/04/2022FINDINGSTher e is a pacemaker present in the left axilla. Patient is status post median sternotomy and CABG. The heart is enlarged. No congestive heart failure is noted. The right lung is clear. There is a focus of abnormal density in the lingular segment of the left upper lobe which could represent infiltrate or subsegmental atelectasis. Follow-up of this area is recommended.IMPRESSIONCardiomegaly without congestive heart failure, unchangedNew increased density in the lingular segment of the left upper lobe which could represent infiltrate or subsegmental atelectasis. Follow-up of this area is recommended.Electronically signed by: BENJAMIN WHITAKER (December 25, 2021 07:19:49)
[2021-12-25] MEDS ORDERED: K-DUR TAB 20 MEQ PO ONE (08:07)
[2021-12-25] MEDS: FLOMAX PO SCH ×2 (09:49→21:11)
[2021-12-25] MEDS: IMDUR PO SCH (09:49)
[2021-12-25] MEDS: LASIX IVP SCH ×2 (09:50→16:21)
[2021-12-25] MEDS: MAG-OX TAB PO SCH ×4 (09:50→21:11)
[2021-12-25] MEDS: PLAVIX PO SCH (09:50)
[2021-12-25] MEDS: LANOXIN or DIGITEK PO SCH (09:58)
[2021-12-25] MEDS: NS 1,000 ML IV 1,000 ML IV SCH (11:39)
[2021-12-25] MEDS: DUONEB 0.5 MG/3 MG (3 mL) NEB SCH ×3 (13:35→21:15)
--- NOTE | 2021-12-25 14:22 | VAS ---
Ultrasound bilateral lower extremity venous DopplerIndication: Dyspnea and weakness. EdemaTECHNIQUEDynamic grayscale, color spectral Doppler imaging through the bilateral lower extremity veins compression techniques spectral analysisFINDINGSThe bilateral common femoral veins, superficial femoral veins throughout their lengths and popliteal veins are patent and compressible with normal respiratory phasicity. Posterior tibial veins are patentIMPRESSIONNo right or left lower extremity deep vein thrombosisElectronically signed by: MAVERICK JARAMILLO (December 25, 2021 14:20:42)
[2021-12-25] MEDS: NEURONTIN CAP 300 MG PO SCH (21:11)
[2021-12-25] MEDS: LOVENOX INJ 60 MG SYR SC SCH (21:12)
[2021-12-25] MEDS ORDERED: CATAPRES TAB 0.1 MG PO ONE (23:35)
[2021-12-25] MEDS ORDERED: CATAPRES TAB 0.1 MG ONE (23:38)
--- NOTE | 2021-12-26 00:56 | DR.UPDATE ---
H&P Update History and Physical Update: History and Physical reviewed and patient examined. Changes noted: Yes with the following: WAS A DIRECT ADMISSION FOR TREATMENT OF CHF AND COPD EXACERBATION. BLE NOTED WITH 1+ PITTING EDEMA. ERYTHEMA ALSO NOTED TO LOWER EXTREMITIES. ON ADMISSION, LABS WERE OBTAINED. WBC 10.6, RBC 4.50, HGB 14.7, HCT 42.8, D-DIMER 3.23, SODIUM 136, POTASSIUM 3.8, CHLORIDE 99, BUN 32, CREATININE 2.49, GLUCSOE 138, CALCIUM 8.7, ALK PHOS 136, BNP 3810, TOTAL PROTEIN 6.4, ALBUMIN 2.6. URINALYSIS REVEALED: WBC 0-2, RBC 5-10, BACTERIA TRACE, LEUKOCYTES NEGATIVE, NITRITES NEGATIVE, BLOOD 3+. COVID-19 NEGATIVE. A CHEST XRAY WAS OBTAINED AND REVEALED: Cardiomegaly, small encasing left pleural effusion and query peripheral left lower lobe infiltrate. WE WILL START NORMAL SALINE AT 50 ML/HR, LASIX 40MG IV BID, DUONEBS QID, DIGOXIN 0.125G PO DAILY, LOVENOX 60MG SC Q12H, MAG OX 200MG PO QID, FLOMAX 0.4MG PO BID, IMDUR 30MG PO QAM, NEURONTIN 300MG PO HS, FLEXERIL 5MG PO Q8H. WE WILL OBTAIN LOWER EXTREMITY VENOUS DOPPLERS AND A VQ SCAN. OTHERWISE, WE PLAN TO FOLLOW-UP WITH AM LABS AND CONTINUE TO MONITOR. TIME SPENT ON CLINICAL ASSESSMENT, REVIEWING LABS AND IMAGING, DECISION MAKING, AND DOCUMENTATION GREATER THAN 75 MINUTES. Prescription drug monitoring program results: PDMP was not reviewed H&P Reviewed: Yes Patient was examined?: Yes
[2021-12-26 06:12] LABS: BASOPHILS % (AUTO) 0.5 % (0.2-1.0); EOSINOPHILS # (AUTO) 0.1 x10^3/uL (0.0-0.2); EOSINOPHILS % (AUTO) 1.5 % (0.9-2.9); HEMATOCRIT 42.6 % (42.0-54.0); HEMOGLOBIN 14.4 g/dL (13.5-18.0); LYMPHOCYTES # (AUTO) 1.1 X10^3/uL (1.3-2.9); LYMPHOCYTES % (AUTO) 13.7 % (21.0-51.0); MEAN CORPUSCULAR HEMOGLOBIN 32.3 pg (27.0-34.0); MEAN CORPUSCULAR HGB CONC 33.9 g/dL (33.0-35.0); MEAN CORPUSCULAR VOLUME 95.2 fL (80.0-100.0); MEAN PLATELET VOLUME 7.8 fL (7.4-11.0); MONOCYTES # (AUTO) 0.8 x10^3/uL (0.3-0.8); MONOCYTES % (AUTO) 9.7 % (0.0-13.0); NEUTROPHILS # (AUTO) 6.1 x10^3/uL (2.2-4.8); NEUTROPHILS % (AUTO) 74.6 % (42.0-75.0); RED BLOOD COUNT 4.48 X10^6/uL (4.7-6.0); RED CELL DISTRIBUTION WIDTH 14.9 % (11.6-16.5); WHITE BLOOD COUNT 8.2 X10^3/uL (3.6-10.0)
[2021-12-26] MEDS: FLEXERIL TAB 10 MG PO SCH ×3 (06:12→21:00)
[2021-12-26 06:21] LABS: ALBUMIN 2.2 g/dL (3.4-5.0); CALCIUM 7.9 mg/dL (8.5-10.1); CARBON DIOXIDE 31.9 mmol/L (21-32); COR CA(FOR HYPOALB) 9.3 mg/dL (8.5-10.1); CREATININE 2.02 mg/dL (0.70-1.30); DIGOXIN 0.96 ng/mL (0.9-2); TOTAL PROTEIN 5.7 g/dL (6.4-8.2)
--- NOTE | 2021-12-26 07:09 | RAD ---
HISTORYShortness of breathSTUDYChest AP [id number]/2022FINDINGSPati ent is rotated to the left. There is a pacemaker present in the left axilla. Patient is status post median sternotomy and CABG. Heart remains enlarged. No congestive heart failure is noted. No definite infiltrates are identified. The previously noted density in the lingular segment of the left upper lobe cannot be evaluated due to leftward rotation. No pleural effusion or pneumothorax identified. Bony thorax is unremarkable.IMPRESSIONCardiomegaly without congestive heart failureNo definite infiltrates however evaluation of the previously described density in the lingular segment of the left upper lobe is not possible due to leftward rotation.Electronically signed by: BENJAMIN WHITAKER (December 26, 2021 07:07:33)
[2021-12-26] MEDS: DUONEB 0.5 MG/3 MG (3 mL) NEB SCH ×4 (08:50→20:30)
[2021-12-26] MEDS: FLOMAX PO SCH ×2 (09:50→20:47)
[2021-12-26] MEDS: LASIX IVP SCH ×2 (09:53→17:25)
[2021-12-26] MEDS: MAG-OX TAB PO SCH ×4 (09:53→20:48)
[2021-12-26] MEDS: IMDUR PO SCH (09:53)
[2021-12-26] MEDS: PLAVIX PO SCH (09:53)
[2021-12-26] MEDS: LANOXIN or DIGITEK PO SCH (10:04)
[2021-12-26] MEDS: LOVENOX INJ 60 MG SYR SC SCH ×2 (10:05→20:51)
[2021-12-26] MEDS: ALBUMIN HUMAN 25%- 100 ML 100 ML IV SCH ×2 (11:51→20:46)
[2021-12-26] MEDS: NS 1,000 ML IV 1,000 ML IV SCH ×2 (17:25→17:26)
[2021-12-26] MEDS ORDERED: MICRO K EXTEN CAP 10 MEQ PO PRN ×2 (18:24→18:31)
[2021-12-26] MEDS ORDERED: POTASSIUM CHL 60 MEQ/NS 0.45% 500 ML IV PRN ×2 (18:24→18:31)
[2021-12-26] MEDS ORDERED: MAGNESIUM SULFATE 1 GRAM/100 mL PREMIX 1 G/100 ML BAG IV PRN (18:24)
[2021-12-26] MEDS ORDERED: POTASSIUM CHL 40 MEQ/NS 0.45% 500 ML IV PRN ×2 (18:24→18:31)
[2021-12-26] MEDS ORDERED: KLOR-CON PO PRN (18:31)
[2021-12-26] MEDS ORDERED: K-RIDER 10 MEQ/NS 100 ML 10 MEQ/100 ML BAG IV PRN (18:31)
[2021-12-26] MEDS ORDERED: K-DUR TAB 20 MEQ PO PRN (18:31)
[2021-12-26] MEDS ORDERED: POTASSIUM CHLORIDE LIQ 20 MEQ UDC PO PRN (18:31)
[2021-12-26] MEDS: NEURONTIN CAP 300 MG PO SCH (20:49)
[2021-12-27] MEDS: NS 1,000 ML IV 1,000 ML IV SCH ×2 (03:44→21:27)
[2021-12-27] MEDS: FLEXERIL TAB 10 MG PO SCH ×3 (06:25→21:42)
[2021-12-27 06:38] LABS: BASOPHILS % (AUTO) 0.6 % (0.2-1.0); EOSINOPHILS # (AUTO) 0.2 x10^3/uL (0.0-0.2); EOSINOPHILS % (AUTO) 1.9 % (0.9-2.9); HEMATOCRIT 37.6 % (42.0-54.0); HEMOGLOBIN 12.7 g/dL (13.5-18.0); LYMPHOCYTES # (AUTO) 1.1 X10^3/uL (1.3-2.9); LYMPHOCYTES % (AUTO) 13.7 % (21.0-51.0); MEAN CORPUSCULAR HEMOGLOBIN 32.1 pg (27.0-34.0); MEAN CORPUSCULAR HGB CONC 33.9 g/dL (33.0-35.0); MEAN CORPUSCULAR VOLUME 94.6 fL (80.0-100.0); MEAN PLATELET VOLUME 7.9 fL (7.4-11.0); MONOCYTES # (AUTO) 0.7 x10^3/uL (0.3-0.8); NEUTROPHILS # (AUTO) 6.2 x10^3/uL (2.2-4.8); NEUTROPHILS % (AUTO) 74.8 % (42.0-75.0); RED BLOOD COUNT 3.97 X10^6/uL (4.7-6.0); RED CELL DISTRIBUTION WIDTH 14.8 % (11.6-16.5); WHITE BLOOD COUNT 8.3 X10^3/uL (3.6-10.0)
--- NOTE | 2021-12-27 06:48 | RAD ---
HISTORYSOBSTUDYAP [id number]/06/2022FINDINGSStable cardiomegaly and pacemaker with sternal wires. Pulmonary vascular congestion. No airspace consolidation, pneumothorax or large pleural effusion.IMPRESSIONNo significant interval change/new abnormality since 1 day prior.Electronically signed by: HERNESTO LITTLE (December 27, 2021 06:47:08)
[2021-12-27 06:52] LABS: ALBUMIN 2.8 g/dL (3.4-5.0); CALCIUM 7.6 mg/dL (8.5-10.1); CARBON DIOXIDE 33.2 mmol/L (21-32); COR CA(FOR HYPOALB) 8.6 mg/dL (8.5-10.1); CREATININE 1.73 mg/dL (0.70-1.30); DIGOXIN 0.83 ng/mL (0.9-2); TOTAL PROTEIN 5.7 g/dL (6.4-8.2)
[2021-12-27] MEDS: KLOR-CON PO PRN (06:59)
[2021-12-27] MEDS: DUONEB 0.5 MG/3 MG (3 mL) NEB SCH ×4 (08:30→21:05)
[2021-12-27] MEDS: ALBUMIN HUMAN 25%- 100 ML 100 ML IV SCH (09:37)
[2021-12-27] MEDS: LOVENOX INJ 60 MG SYR SC SCH ×2 (09:37→21:40)
[2021-12-27] MEDS: PLAVIX PO SCH (09:37)
[2021-12-27] MEDS: IMDUR PO SCH (09:38)
[2021-12-27] MEDS: MAG-OX TAB PO SCH ×4 (09:38→21:42)
[2021-12-27] MEDS: FLOMAX PO SCH ×2 (09:38→21:28)
[2021-12-27] MEDS: LANOXIN or DIGITEK PO SCH (09:38)
[2021-12-27] MEDS: LASIX IVP SCH ×4 (09:39→21:27)
[2021-12-27] MEDS: NEURONTIN CAP 300 MG PO SCH (21:42)
[2021-12-27] MEDS: K-DUR TAB 20 MEQ PO PRN (21:43)
[2021-12-28 05:48] LABS: BASOPHILS % (AUTO) 0.6 % (0.2-1.0); EOSINOPHILS # (AUTO) 0.1 x10^3/uL (0.0-0.2); EOSINOPHILS % (AUTO) 1.8 % (0.9-2.9); HEMATOCRIT 36.7 % (42.0-54.0); HEMOGLOBIN 12.5 g/dL (13.5-18.0); LYMPHOCYTES # (AUTO) 1.2 X10^3/uL (1.3-2.9); LYMPHOCYTES % (AUTO) 18.2 % (21.0-51.0); MEAN CORPUSCULAR HEMOGLOBIN 32.5 pg (27.0-34.0); MEAN CORPUSCULAR VOLUME 95.5 fL (80.0-100.0); MEAN PLATELET VOLUME 7.9 fL (7.4-11.0); MONOCYTES # (AUTO) 0.6 x10^3/uL (0.3-0.8); MONOCYTES % (AUTO) 9.3 % (0.0-13.0); NEUTROPHILS # (AUTO) 4.7 x10^3/uL (2.2-4.8); NEUTROPHILS % (AUTO) 70.1 % (42.0-75.0); RED BLOOD COUNT 3.84 X10^6/uL (4.7-6.0); RED CELL DISTRIBUTION WIDTH 15.3 % (11.6-16.5); WHITE BLOOD COUNT 6.7 X10^3/uL (3.6-10.0)
[2021-12-28] MEDS: FLEXERIL TAB 10 MG PO SCH ×3 (05:52→21:50)
[2021-12-28] MEDS: NS 1,000 ML IV 1,000 ML IV SCH ×3 (05:53→20:28)
[2021-12-28 06:00] LABS: ALBUMIN 2.9 g/dL (3.4-5.0); CALCIUM 8.2 mg/dL (8.5-10.1); CARBON DIOXIDE 35.3 mmol/L (21-32); COR CA(FOR HYPOALB) 9.1 mg/dL (8.5-10.1); CREATININE 1.63 mg/dL (0.70-1.30); DIGOXIN 0.93 ng/mL (0.9-2); TOTAL PROTEIN 5.9 g/dL (6.4-8.2)
[2021-12-28] MEDS: KLOR-CON PO PRN (06:27)
--- NOTE | 2021-12-28 06:59 | RAD ---
HISTORYCHF COPDSTUDYAP [id number]/07/2022FINDINGSContinu ed cardiomegaly, stable pacemaker and pulmonary vascular distention. Slight interval increase in airspace density right upper lobe. No dense consolidation, pleural fluid or complicating pneumothorax identified.IMPRESSIONSuspect developing pneumonia/atelectasis right upper lobe. See above. Continued follow-up indicated.Electronically signed by: HERNESTO LITTLE (December 28, 2021 06:58:58)
[2021-12-28] MEDS: DUONEB 0.5 MG/3 MG (3 mL) NEB SCH ×4 (08:27→21:15)
[2021-12-28] MEDS: LASIX IVP SCH ×2 (09:38→17:03)
[2021-12-28] MEDS: LOVENOX INJ 60 MG SYR SC SCH ×2 (09:39→20:26)
[2021-12-28] MEDS: LANOXIN or DIGITEK PO SCH (09:41)
[2021-12-28] MEDS: PLAVIX PO SCH (09:41)
[2021-12-28] MEDS: MAG-OX TAB PO SCH ×4 (09:42→20:26)
[2021-12-28] MEDS: FLOMAX PO SCH ×2 (09:42→20:26)
[2021-12-28] MEDS: IMDUR PO SCH (09:42)
[2021-12-28] MEDS: ALBUMIN HUMAN 25%- 100 ML 100 ML IV SCH (09:44)
[2021-12-28] MEDS: NEURONTIN CAP 300 MG PO SCH (20:27)
[2021-12-28] MEDS ORDERED: ZOFRAN INJ 4 MG VIAL IVP PRN (23:09)
[2021-12-29 06:25] LABS: BASOPHILS % (AUTO) 0.4 % (0.2-1.0); EOSINOPHILS # (AUTO) 0.1 x10^3/uL (0.0-0.2); EOSINOPHILS % (AUTO) 1.5 % (0.9-2.9); HEMOGLOBIN 13.3 g/dL (13.5-18.0); LYMPHOCYTES # (AUTO) 0.8 X10^3/uL (1.3-2.9); MEAN CORPUSCULAR HEMOGLOBIN 32.7 pg (27.0-34.0); MEAN CORPUSCULAR HGB CONC 34.1 g/dL (33.0-35.0); MEAN CORPUSCULAR VOLUME 95.8 fL (80.0-100.0); MEAN PLATELET VOLUME 7.9 fL (7.4-11.0); MONOCYTES # (AUTO) 0.7 x10^3/uL (0.3-0.8); MONOCYTES % (AUTO) 8.8 % (0.0-13.0); NEUTROPHILS # (AUTO) 5.9 x10^3/uL (2.2-4.8); NEUTROPHILS % (AUTO) 78.3 % (42.0-75.0); RED BLOOD COUNT 4.07 X10^6/uL (4.7-6.0); RED CELL DISTRIBUTION WIDTH 15.2 % (11.6-16.5); WHITE BLOOD COUNT 7.6 X10^3/uL (3.6-10.0)
[2021-12-29] MEDS: FLEXERIL TAB 10 MG PO SCH ×3 (06:29→21:01)
--- NOTE | 2021-12-29 06:36 | RAD ---
HISTORYShortness of breathSTUDYChest AP [id number]/08/2022FINDINGSTher e is a pacemaker present in the left axilla. Patient is status post median sternotomy and CABG. The heart remains enlarged. Mild pulmonary venous congestion is present. There is a right upper lobe infiltrate slightly more prominent than on the prior examination. Remainder of the lung toth are clear. No pleural effusions are identified. Bony thorax is unremarkable.IMPRESSIONRight upper lobe infiltrate slightly more prominentCardiomegaly without congestive heart failureElectronically signed by: BENJAMIN WHITAKER (December 29, 2021 06:35:50)
[2021-12-29 06:38] LABS: CALCIUM 8.9 mg/dL (8.5-10.1); CARBON DIOXIDE 35.6 mmol/L (21-32); CREATININE 1.49 mg/dL (0.70-1.30)
[2021-12-29] MEDS: DUONEB 0.5 MG/3 MG (3 mL) NEB SCH ×3 (09:05→20:44)
[2021-12-29] MEDS: ALBUMIN HUMAN 25%- 100 ML 100 ML IV SCH (09:29)
[2021-12-29] MEDS: MILK OF MAGNESIA PO PRN (09:31)
[2021-12-29] MEDS: LANOXIN or DIGITEK PO SCH (09:31)
[2021-12-29] MEDS: FLOMAX PO SCH ×2 (09:31→20:56)
[2021-12-29] MEDS: COLACE CAP 100 MG PO PRN (09:32)
[2021-12-29] MEDS: PLAVIX PO SCH (09:32)
[2021-12-29] MEDS: MAG-OX TAB PO SCH ×4 (09:32→20:56)
[2021-12-29] MEDS: IMDUR PO SCH (09:32)
[2021-12-29] MEDS: LOVENOX INJ 60 MG SYR SC SCH ×2 (09:33→20:56)
[2021-12-29] MEDS: LASIX IVP SCH ×2 (09:43→17:30)
[2021-12-29] MEDS ORDERED: LEVAQUIN PREMIX IV 500 MG 500 MG/100 ML BAG IV NR (12:00)
--- NOTE | 2021-12-29 12:52 | PCM.PROG ---
Progress Note - Progress Note for Day of Date of Exam: 12/26/21 - Subjective Subjective: WAS ADMITTED ON 12/24/21 FOR TREATMENT OF CHF AND COPD EXACERBATION. TODAY, HE IS ALERT AND ORIENTED, LYING IN BED ON MORNING ROUNDS. HE CONTINUES WITH COMPLAINTS OF SHORTNESS OF BREATH, WEAKNESS, AND LOWER EXTREMITY SWELLING TODAY. ON EXAMINATION, HEART IS REGULAR IN RATE AND RHYTHM. BILATERAL LUNGS NOTED WITH DIMINISHED LUNG SOUNDS THROUGHOUT. ABDOMEN IS ROUND, SOFT, AND NON-TENDER WITH NORMAL BOWEL SOUNDS NOTED IN ALL QUADRANTS. BLE NOTED WITH 1+ PITTING EDEMA. HIS VITALS THIS MORNING ARE: 97.3-71-24-100%-139/86. LABS WERE OBTAINED. ABNORMAL LAB VALUES INCLUDE THE FOLLOWING: RBC 4.48, POTASSIUM 3.3, BUN 27, CREATININE 2.02, GLUCOSE 134, CALCIUM 7.9, BNP 2460, TOTAL PROTEIN 5.7, ALBUMIN 2.2. A CHEST XRAY WAS OBTAINED AND REVEALED: Cardiomegaly without congestive heart failure. No definite infiltrates however evaluation of the previously described density in the lingular segment of the left upper lobe is not possible due to leftward rotation. HE IS CURRENTLY RECEIVING NORMAL SALINE AT 50 ML/HR, LASIX 40MG IV BID, DUONEBS QID, DIGOXIN 0.125G PO DAILY, LOVENOX 60MG SC Q12H, MAG OX 200MG PO QID, FLOMAX 0.4MG PO BID, IMDUR 30MG PO QAM, NEURONTIN 300MG PO HS, FLEXERIL 5MG PO Q8H. WE WILL ADD ALBUMIN 25% IV BID AND THE POTASSIUM AND MAGNESIUM PROTOCOLS. OTHERWISE, WE PLAN TO FOLLOW UP WITH AM LABS AND CONTINUE TO MONITOR. TIME SPENT ON CLINICAL ASSESSMENT, REVIEWING LABS AND IMAGING, DECISION MAKING, AND DOCUMENTATION GREATER THAN 45 MINUTES. - Past Medical Family Social History Past Med/Fam/Surg Hx: No changes since H&P Allergies: Allergies No Known Drug Allergies Allergy (Verified 12/25/21 09:23) - Review of Systems ROS: No change since H&P - Vital Signs and I&O's Vital Signs: Temperature 97.5 F Pulse Rate [Left Brachial] 70 Pulse Rate 67 Respiratory Rate 20 Blood Pressure [Left Arm] 167/88 Blood Pressure [Right Arm] 153/72 O2 Sat by Pulse Oximetry 99 Intake and Output: Intake & Output 12/27/21 12/28/21 12/29/2110/22 11:59 11:59 11:59 11:59 Intake Total 3228 / 3228 940 / 940 1310 / 1310 Output Total 2954 / 2954 3360 / 3360 2980 / 2980 Balance 274 / 274 -2420 / -2420 -1670 / -1670 - Physical Exam Oriented: Normal Eyes: Normal Ear: Normal Nose: Normal Throat: Normal Respiratory: Generalized, Diminished Cardiovascular: Edema (BLE 1+ PITTING EDEMA ) : Normal Auscultation: Bowel Sounds: Normal Palpation: Normal Tenderness: Normal Skin: Normal Musculoskeletal: Normal Psychiatric: Normal Mood Description: Calm Affect: Normal Speech Pattern: Clear - Laboratory and Diagnostics Result Diagrams: 12/29/21 05:55 12/29/21 05:55 Labs: Laboratory WBC 7.6 X10^3/uL (3.6-10.0) 12/29/21 05:55 RBC 4.07 X10^6/uL (4.7-6.0) L 12/29/21 05:55 Hgb 13.3 g/dL (13.5-18.0) L 12/29/21 05:55 Hct 39.0 % (42.0-54.0) L 12/29/21 05:55 MCV 95.8 fL (80.0-100.0) 12/29/21 05:55 MCH 32.7 pg (27.0-34.0) 12/29/21 05:55 MCHC 34.1 g/dL (33.0-35.0) 12/29/21 05:55 RDW 15.2 % (11.6-16.5) 12/29/21 05:55 Plt Count 166 X10^3/uL (150.0-450.0) 12/29/21 05:55 MPV 7.9 fL (7.4-11.0) 12/29/21 05:55 Neut % (Auto) 78.3 % (42.0-75.0) H 12/29/21 05:55 Lymph % (Auto) 11.0 % (21.0-51.0) L 12/29/21 05:55 [place] % (Auto) 8.8 % (0.0-13.0) 12/29/21 05:55 Eos % (Auto) 1.5 % (0.9-2.9) 12/29/21 05:55 Baso % (Auto) 0.4 % (0.2-1.0) 12/29/21 05:55 Neut # (Auto) 5.9 x10^3/uL (2.2-4.8) H 12/29/21 05:55 Lymph # (Auto) 0.8 X10^3/uL (1.3-2.9) L 12/29/21 05:55 [place] # (Auto) 0.7 x10^3/uL (0.3-0.8) 12/29/21 05:55 Eos # (Auto) 0.1 x10^3/uL (0.0-0.2) 12/29/21 05:55 Baso # (Auto) 0.0 X10^3/uL (0.0-0.1) 12/29/21 05:55 Absolute Nucleated RBC 0.0 /100WBC 12/29/21 05:55 D-Dimer 3.23 ug/ml (0.0-0.57) H* 12/24/21 16:25 Sodium 138 mmol/L (136-145) 12/29/21 05:55 Corrected Sodium 139 mmol/L (136-145) 12/29/21 05:55 Potassium 3.8 mmol/L (3.5-5.1) 12/29/21 05:55 Chloride 98 mmol/L (98-107) 12/29/21 05:55 Carbon Dioxide 35.6 mmol/L (21-32) H 12/29/21 05:55 BUN 25 mg/dL (7-18) H 12/29/21 05:55 Creatinine 1.49 mg/dL (0.70-1.30) H 12/29/21 05:55 Est GFR (MDRD) Af Amer 57 (>60) L 12/29/21 05:55 Est GFR (MDRD) Non-Af 47 (>60) L 12/29/21 05:55 Glucose 133 mg/dL (65-99) H 12/29/21 05:55 Calcium 8.9 mg/dL (8.5-10.1) 12/29/21 05:55 Corrected Calcium 9.1 mg/dL (8.5-10.1) 12/28/21 05:03 Magnesium 1.8 mg/dL (1.7-2.9) 12/26/21 18:53 Total Bilirubin 0.80 mg/dL (0.2-1.0) 12/28/21 05:03 AST 23 Units/L (15-37) 12/28/21 05:03 ALT 24 Units/L (12-78) 12/28/21 05:03 Alkaline Phosphatase 95 Units/L (46-116) 12/28/21 05:03 B-Natriuretic Peptide 960 pg/mL (0-79) H* 12/29/21 05:55 Total Protein 5.9 g/dL (6.4-8.2) L 12/28/21 05:03 Albumin 2.9 g/dL (3.4-5.0) L 12/28/21 05:03 Globulin 3.0 g/dL (2.5-4.5) 12/28/21 05:03 Albumin/Globulin Ratio 1.0 Ratio (1.1-2.1) L 12/28/21 05:03 Specimen Type Catherized urine 12/24/21 17:05 Urine Color Yellow (YELLOW) 12/24/21 17:05 Urine Appearance Clear (CLEAR) 12/24/21 17:05 Urine pH 6.0 (5.0 - 8.0) 12/24/21 17:05 Ur Specific [place] 1.015 (1.000-1.030) 12/24/21 17:05 Urine Protein 4+ (NEGATIVE) 12/24/21 17:05 Urine Glucose (UA) 1+ (NEGATIVE) 12/24/21 17:05 Urine Ketones Negative (NEGATIVE) 12/24/21 17:05 Urine Blood 3+ (NEGATIVE) 12/24/21 17:05 Urine Nitrite Negative (NEGATIVE) 12/24/21 17:05 Urine Bilirubin Negative (NEGATIVE) 12/24/21 17:05 Urine Urobilinogen Normal (NORMAL) 12/24/21 17:05 Ur Leukocyte Esterase Negative (NEGATIVE) 12/24/21 17:05 Urine RBC 5-10 /HPF (0-3) A 12/24/21 17:05 Urine WBC 0-2 /HPF (0-5) 12/24/21 17:05 Ur Squamous Epith Cells Rare /HPF (NEGATIVE) 12/24/21 17:05 Urine Bacteria Trace /HPF (NEGATIVE) 12/24/21 17:05 Ur Culture Indicated? No/not indicated 12/24/21 17:05 Digoxin 0.93 ng/mL (0.9-2) 12/28/21 05:03 SARS-CoV-2 (PCR) Negative (NEGATIVE) 12/24/21 18:27 - Plan (1) CHF (congestive heart failure) Status: Chronic Qualifiers: Heart failure type: unspecified Heart failure chronicity: acute on chronic Qualified Code(s): I50.9 - Heart failure, unspecified Plan: NORMAL SALINE AT 50 ML/HR, LASIX 40MG IV BID, ALBUMIN 25% BID, DUONEBS QID, DIGOXIN 0.125G PO DAILY, LOVENOX 60MG SC Q12H, MAG OX 200MG PO QID, FLOMAX 0.4MG PO BID, IMDUR 30MG PO QAM, NEURONTIN 300MG PO HS, FLEXERIL 5MG PO Q8H, POTASSIUM AND MAGNESIUM PROTOCOLS (2) COPD exacerbation Status: Acute (3) Hypokalemia Status: Acute (4) Hypomagnesemia Status: Acute (5) BPH (benign prostatic hyperplasia) Status: Chronic Qualifiers: Lower urinary tract symptom presence: unspecified whether lower urinary tract symptoms present Qualified Code(s): N40.0 - Benign prostatic hyperplasia without lower urinary tract symptoms (6) CAD (coronary artery disease) Status: Chronic Qualifiers: Coronary Disease-Associated Artery/Lesion type: [place] artery [place] vs. transplanted heart: [place] heart Associated angina: unspecified whether angina present Qualified Code(s): I25.10 - Atherosclerotic heart disease of [place] coronary artery without angina pectoris
[2021-12-29] MEDS: NS 1,000 ML IV 1,000 ML IV SCH (18:25)
[2021-12-29] MEDS: NEURONTIN CAP 300 MG PO SCH (20:56)
[2021-12-30] MEDS: NS 1,000 ML IV 1,000 ML IV SCH ×2 (03:01→16:26)
--- NOTE | 2021-12-30 06:00 | RAD ---
HISTORYShortness of breathSTUDYChest AP [id number]/09/2022FINDINGSTher e is a pacemaker present in the left axilla. Patient is status post median sternotomy and CABG. Heart remains mildly enlarged. Pulmonary venous congestion is no longer present. Right upper lobe infiltrate has improved. Remainder of the lung toth are clear. No pleural effusions are identified. Bony thorax is unremarkable.IMPRESSIONImprovement right upper lobe infiltrateContinued mild cardiomegaly without congestive heart failureElectronically signed by: BENJAMIN WHITAKER (December 30, 2021 05:59:04)
[2021-12-30 06:02] LABS: BASOPHILS % (AUTO) 0.3 % (0.2-1.0); EOSINOPHILS # (AUTO) 0.1 x10^3/uL (0.0-0.2); EOSINOPHILS % (AUTO) 1.8 % (0.9-2.9); HEMATOCRIT 39.2 % (42.0-54.0); HEMOGLOBIN 13.2 g/dL (13.5-18.0); LYMPHOCYTES # (AUTO) 1.3 X10^3/uL (1.3-2.9); MEAN CORPUSCULAR HEMOGLOBIN 32.5 pg (27.0-34.0); MEAN CORPUSCULAR HGB CONC 33.6 g/dL (33.0-35.0); MEAN CORPUSCULAR VOLUME 96.7 fL (80.0-100.0); MEAN PLATELET VOLUME 7.5 fL (7.4-11.0); MONOCYTES # (AUTO) 0.6 x10^3/uL (0.3-0.8); MONOCYTES % (AUTO) 8.7 % (0.0-13.0); NEUTROPHILS # (AUTO) 4.7 x10^3/uL (2.2-4.8); NEUTROPHILS % (AUTO) 70.2 % (42.0-75.0); RED BLOOD COUNT 4.06 X10^6/uL (4.7-6.0); WHITE BLOOD COUNT 6.7 X10^3/uL (3.6-10.0)
[2021-12-30 06:10] LABS: BLOOD UREA NITROGEN 23 mg/dL (7-18); CARBON DIOXIDE 37.6 mmol/L (21-32); CHLORIDE 98 mmol/L (98-107); COR NA(FOR HYPERGLY) 140 mmol/L (136-145); CREATININE 1.32 mg/dL (0.70-1.30); SODIUM 140 mmol/L (136-145); eGFR NON BLACK RACES 54 (>60)
[2021-12-30 06:15] LABS: MAGNESIUM 2.1 mg/dL (1.7-2.9)
[2021-12-30] MEDS: FLEXERIL TAB 10 MG PO SCH (06:21)
[2021-12-30 06:45] LABS: DIGOXIN 0.77 ng/mL (0.9-2)
[2021-12-30] MEDS: LEVAQUIN PREMIX IV 250 MG 250 MG/50 ML BAG IV SCH (08:57)
[2021-12-30] MEDS: LOVENOX INJ 60 MG SYR SC SCH ×2 (08:59→20:44)
[2021-12-30] MEDS: LASIX IVP SCH ×2 (08:59→16:52)
[2021-12-30] MEDS: PLAVIX PO SCH (09:01)
[2021-12-30] MEDS: FLOMAX PO SCH ×2 (09:01→20:44)
[2021-12-30] MEDS: IMDUR PO SCH (09:02)
[2021-12-30] MEDS: LANOXIN or DIGITEK PO SCH (09:02)
[2021-12-30] MEDS: MAG-OX TAB PO SCH ×4 (09:02→20:45)
[2021-12-30] MEDS: DUONEB 0.5 MG/3 MG (3 mL) NEB SCH ×4 (09:07→20:50)
[2021-12-30] MEDS: ALBUMIN HUMAN 25%- 100 ML 100 ML IV SCH (10:00)
[2021-12-30] MEDS: ZOSYN VIAL 3.375 GRAMS 3.375 G in NS 100 ML IV 100 ML IV SCH ×3 (11:10→21:00)
--- NOTE | 2021-12-30 11:55 | PCM.PROG ---
Progress Note - Progress Note for Day of Date of Exam: 12/29/21 - Subjective Subjective: WAS ADMITTED ON 12/24/21 FOR TREATMENT OF CHF AND COPD EXACERBATION. TODAY, HE IS ALERT AND ORIENTED, LYING IN BED ON MORNING ROUNDS. HE CONTINUES WITH COMPLAINTS OF SHORTNESS OF BREATH AND WEAKNESS TODAY. ON EXAMINATION, HEART IS REGULAR IN RATE AND RHYTHM. BILATERAL LUNGS NOTED WITH DIMINISHED LUNG SOUNDS THROUGHOUT. ABDOMEN IS ROUND, SOFT, AND NON-TENDER WITH NORMAL BOWEL SOUNDS NOTED IN ALL QUADRANTS. BLE NOTED WITH TRACE EDEMA. HIS VITALS THIS MORNING ARE: 97.5-70-20-99%-153/72. LABS WERE OBTAINED. ABNORMAL LAB VALUES INCLUDE THE FOLLOWING: RBC 4.07, HGB 13.3, HCT 39.0, CARBON DIOXIDE 35.6, BUN 25, CREATININE 1.49, GLUCOSE 133, BNP 960. A CHEST XRAY WAS OBTAINED AND REVEALED: There is a pacemaker present in the left axilla. Patient is status post median sternotomy and CABG. The heart remains enlarged. Mild pulmonary venous congestion is present. There is a right upper lobe infiltrate slightly more prominent than on the prior examination. Remainder of the lung toth are clear. No pleural effusions are identified. Bony thorax is unremarkable. HE IS CURRENTLY RECEIVING NORMAL SALINE AT 50 ML/HR, LASIX 40MG IV DAILY, DUONEBS QID, DIGOXIN 0.125G PO DAILY, LOVENOX 60MG SC Q12H, MAG OX 200MG PO QID, FLOMAX 0.4MG PO BID, IMDUR 30MG PO QAM, NEURONTIN 300MG PO HS, FLEXERIL 5MG PO Q8H, COLACE 200MG PO Q12H, MILK OF MAGNESIA 30MG PO Q12H, AN THE POTASSIUM AND MAGNESIUM PROTOCOLS. TODAY, WE WILL ADD LEVAQUIN 250MG IV DAILY AND ZOSYN 3.375G IV TID DUE TO RIGHT UPPER LOBE INFILTRATE. OTHERWISE, WE PLAN TO FOLLOW UP WITH AM LABS AND CONTINUE TO MONITOR. TIME SPENT ON CLINICAL ASSESSMENT, REVIEWING LABS AND IMAGING, DECISION MAKING, AND DOCUMENTATION GREATER THAN 45 MINUTES. - Past Medical Family Social History Past Med/Fam/Surg Hx: No changes since H&P Allergies: Allergies No Known Drug Allergies Allergy (Verified 12/25/21 09:23) - Review of Systems ROS: No change since H&P - Vital Signs and I&O's Vital Signs: Temperature 97.3 F Pulse Rate [Left Brachial] 68 Pulse Rate 70 Respiratory Rate 20 Blood Pressure [Left Arm] 167/88 Blood Pressure [Right Arm] 130/61 O2 Sat by Pulse Oximetry 96 Intake and Output: Intake & Output 12/27/21 12/28/21 12/29/21 12/30/21 11:59 11:59 11:59 11:59 Intake Total 3228 / 3228 940 / 940 1310 / 1310 675 / 675 Output Total 2954 / 2954 3360 / 3360 2980 / 2980 350 / 350 Balance 274 / 274 -2420 / -2420 -1670 / -1670 325 / 325 - Physical Exam Oriented: Normal Eyes: Normal Ear: Normal Nose: Normal Throat: Normal Respiratory: Generalized, Diminished Cardiovascular: Edema (BLE 1+ PITTING EDEMA ) : Normal Auscultation: Bowel Sounds: Normal Palpation: Normal Tenderness: Normal Skin: Normal Musculoskeletal: Normal Psychiatric: Normal Mood Description: Calm Affect: Normal Speech Pattern: Clear - Laboratory and Diagnostics Result Diagrams: 12/30/21 05:40 12/30/21 05:40 Labs: Laboratory WBC 6.7 X10^3/uL (3.6-10.0) 12/30/21 05:40 RBC 4.06 X10^6/uL (4.7-6.0) L 12/30/21 05:40 Hgb 13.2 g/dL (13.5-18.0) L 12/30/21 05:40 Hct 39.2 % (42.0-54.0) L 12/30/21 05:40 MCV 96.7 fL (80.0-100.0) 12/30/21 05:40 MCH 32.5 pg (27.0-34.0) 12/30/21 05:40 MCHC 33.6 g/dL (33.0-35.0) 12/30/21 05:40 RDW 15.0 % (11.6-16.5) 12/30/21 05:40 Plt Count 164 X10^3/uL (150.0-450.0) 12/30/21 05:40 MPV 7.5 fL (7.4-11.0) 12/30/21 05:40 Neut % (Auto) 70.2 % (42.0-75.0) 12/30/21 05:40 Lymph % (Auto) 19.0 % (21.0-51.0) L 12/30/21 05:40 [place] % (Auto) 8.7 % (0.0-13.0) 12/30/21 05:40 Eos % (Auto) 1.8 % (0.9-2.9) 12/30/21 05:40 Baso % (Auto) 0.3 % (0.2-1.0) 12/30/21 05:40 Neut # (Auto) 4.7 x10^3/uL (2.2-4.8) 12/30/21 05:40 Lymph # (Auto) 1.3 X10^3/uL (1.3-2.9) 12/30/21 05:40 [place] # (Auto) 0.6 x10^3/uL (0.3-0.8) 12/30/21 05:40 Eos # (Auto) 0.1 x10^3/uL (0.0-0.2) 12/30/21 05:40 Baso # (Auto) 0.0 X10^3/uL (0.0-0.1) 12/30/21 05:40 Absolute Nucleated RBC 0.0 /100WBC 12/30/21 05:40 D-Dimer 3.23 ug/ml (0.0-0.57) H* 12/24/21 16:25 Sodium 140 mmol/L (136-145) 12/30/21 05:40 Corrected Sodium 140 mmol/L (136-145) 12/30/21 05:40 Potassium 3.7 mmol/L (3.5-5.1) 12/30/21 05:40 Chloride 98 mmol/L (98-107) 12/30/21 05:40 Carbon Dioxide 37.6 mmol/L (21-32) H 12/30/21 05:40 BUN 23 mg/dL (7-18) H 12/30/21 05:40 Creatinine 1.32 mg/dL (0.70-1.30) H 12/30/21 05:40 Est GFR (MDRD) Af Amer > 60 (>60) 12/30/21 05:40 Est GFR (MDRD) Non-Af 54 (>60) L 12/30/21 05:40 Glucose 120 mg/dL (65-99) H 12/30/21 05:40 Calcium 9.0 mg/dL (8.5-10.1) 12/30/21 05:40 Corrected Calcium 9.1 mg/dL (8.5-10.1) 12/28/21 05:03 Magnesium 2.1 mg/dL (1.7-2.9) 12/30/21 05:40 Total Bilirubin 0.80 mg/dL (0.2-1.0) 12/28/21 05:03 AST 23 Units/L (15-37) 12/28/21 05:03 ALT 24 Units/L (12-78) 12/28/21 05:03 Alkaline Phosphatase 95 Units/L (46-116) 12/28/21 05:03 B-Natriuretic Peptide 960 pg/mL (0-79) H* 12/29/21 05:55 Total Protein 5.9 g/dL (6.4-8.2) L 12/28/21 05:03 Albumin 2.9 g/dL (3.4-5.0) L 12/28/21 05:03 Globulin 3.0 g/dL (2.5-4.5) 12/28/21 05:03 Albumin/Globulin Ratio 1.0 Ratio (1.1-2.1) L 12/28/21 05:03 Specimen Type Catherized urine 12/24/21 17:05 Urine Color Yellow (YELLOW) 12/24/21 17:05 Urine Appearance Clear (CLEAR) 12/24/21 17:05 Urine pH 6.0 (5.0 - 8.0) 12/24/21 17:05 Ur Specific [place] 1.015 (1.000-1.030) 12/24/21 17:05 Urine Protein 4+ (NEGATIVE) 12/24/21 17:05 Urine Glucose (UA) 1+ (NEGATIVE) 12/24/21 17:05 Urine Ketones Negative (NEGATIVE) 12/24/21 17:05 Urine Blood 3+ (NEGATIVE) 12/24/21 17:05 Urine Nitrite Negative (NEGATIVE) 12/24/21 17:05 Urine Bilirubin Negative (NEGATIVE) 12/24/21 17:05 Urine Urobilinogen Normal (NORMAL) 12/24/21 17:05 Ur Leukocyte Esterase Negative (NEGATIVE) 12/24/21 17:05 Urine RBC 5-10 /HPF (0-3) A 12/24/21 17:05 Urine WBC 0-2 /HPF (0-5) 12/24/21 17:05 Ur Squamous Epith Cells Rare /HPF (NEGATIVE) 12/24/21 17:05 Urine Bacteria Trace /HPF (NEGATIVE) 12/24/21 17:05 Ur Culture Indicated? No/not indicated 12/24/21 17:05 Digoxin 0.80 ng/mL (0.9-2) L 12/29/21 11:23 SARS-CoV-2 (PCR) Negative (NEGATIVE) 12/24/21 18:27 - Plan (1) CHF (congestive heart failure) Status: Chronic Qualifiers: Heart failure type: unspecified Heart failure chronicity: acute on chronic Qualified Code(s): I50.9 - Heart failure, unspecified Plan: NORMAL SALINE AT 50 ML/HR, LASIX 40MG IV BID, ALBUMIN 25% DAILY, LEVAQUIN 250MG IV DAILY, ZOSYN 3.375G IV TID, DUONEBS QID, DIGOXIN 0.125G PO DAILY, LOVENOX 60MG SC Q12H, MAG OX 200MG PO QID, FLOMAX 0.4MG PO BID, IMDUR 30MG PO QAM, NEURONTIN 300MG PO HS, FLEXERIL 5MG PO Q8H, POTASSIUM AND MAGNESIUM PROTOCOLS (2) Pneumonia Status: Acute Qualifiers: Pneumonia type: due to unspecified organism Laterality: right Lung location: upper lobe of lung Qualified Code(s): J18.9 - Pneumonia, unspecified organism (3) COPD exacerbation Status: Acute (4) Hypokalemia Status: Acute (5) Hypomagnesemia Status: Acute (6) BPH (benign prostatic hyperplasia) Status: Chronic Qualifiers: Lower urinary tract symptom presence: unspecified whether lower urinary tract symptoms present Qualified Code(s): N40.0 - Benign prostatic hyperplasia without lower urinary tract symptoms (7) CAD (coronary artery disease) Status: Chronic Qualifiers: Coronary Disease-Associated Artery/Lesion type: [place] artery [place] vs. transplanted heart: [place] heart Associated angina: unspecified whether angina present Qualified Code(s): I25.10 - Atherosclerotic heart disease of [place] coronary artery without angina pectoris
--- NOTE | 2021-12-30 12:07 | PCM.PROG ---
Progress Note - Progress Note for Day of Date of Exam: 12/30/21 - Subjective Subjective: WAS ADMITTED ON 12/24/21 FOR TREATMENT OF CHF, PNEUMONIA, AND COPD EXACERBATION. TODAY, HE IS LYING IN BED WITH EYES CLOSED ON MORNING ROUNDS. HE AWAKENS TO VERBAL STIMULI. HE CONTINUES WITH COMPLAINTS OF SHORTNESS OF BREATH AND WEAKNESS TODAY. SHORTNESS OF BREATH HAS SLIGHTLY IMPROVED. ON EXAMINATION, HEART IS REGULAR IN RATE AND RHYTHM. BILATERAL LUNGS NOTED WITH DIMINISHED LUNG SOUNDS THROUGHOUT. ABDOMEN IS ROUND, SOFT, AND NON-TENDER WITH NORMAL BOWEL SOUNDS NOTED IN ALL QUADRANTS. BLE NOTED WITH TRACE EDEMA. HIS VITALS THIS MORNING ARE: 97.3-68-20-97%-130/61. LABS WERE OBTAINED. ABNORMAL LAB VALUES INCLUDE THE FOLLOWING: RBC 4.06, HGB 13.2, HCT 39.2, CARBON DIOXIDE 37.6, BUN 23, CREATININE 1.32, GLUCOSE 120. A CHEST XRAY WAS OBTAINED AND REVEALED: There is a pacemaker present in the left axilla. Patient is status post median sternotomy and CABG. Heart remains mildly enlarged. Pulmonary venous congestion is no longer present. Right upper lobe infiltrate has improved. Remainder of the lung toth are clear. No pleural effusions are identified. Bony thorax is unremarkable. HE IS CURRENTLY RECEIVING NORMAL SALINE AT 50 ML/HR, LEVAQUIN 250MG IV DAILY, ZOSYN 3.375G IV TID, LASIX 40MG IV BID, ALBUMIN 25% IV DAILY, DUONEBS QID, DIGOXIN 0.125G PO DAILY, LOVENOX 60MG SC Q12H, MAG OX 200MG PO QID, FLOMAX 0.4MG PO BID, IMDUR 30MG PO QAM, NEURONTIN 300MG PO HS, FLEXERIL 5MG PO Q8H PRN, COLACE 200MG PO Q12H, MILK OF MAGNESIA 30MG PO Q12H, AND THE POTASSIUM AND MAGNESIUM PROTOCOLS. OTHERWISE, WE PLAN TO FOLLOW UP WITH AM LABS AND CONTINUE TO MONITOR. TIME SPENT ON CLINICAL ASSESSMENT, REVIEWING LABS AND IMAGING, DECISION MAKING, AND DOCUMENTATION GREATER THAN 45 MINUTES. - Past Medical Family Social History Past Med/Fam/Surg Hx: No changes since H&P Allergies: Allergies No Known Drug Allergies Allergy (Verified 12/25/21 09:23) - Review of Systems ROS: No change since H&P - Vital Signs and I&O's Vital Signs: Temperature 97.3 F Pulse Rate [Left Brachial] 68 Pulse Rate 70 Respiratory Rate 20 Blood Pressure [Left Arm] 167/88 Blood Pressure [Right Arm] 130/61 O2 Sat by Pulse Oximetry 96 Intake and Output: Intake & Output 12/28/21 12/29/21 12/30/21 12/31/21 11:59 11:59 11:59 11:59 Intake Total 940 / 940 1310 / 1310 675 / 675 Output Total 3360 / 3360 2980 / 2980 350 / 350 Balance -2420 / -2420 -1670 / -1670 325 / 325 - Physical Exam Oriented: Normal Eyes: Normal Ear: Normal Nose: Normal Throat: Normal Respiratory: Generalized, Diminished Cardiovascular: Edema (BLE 1+ PITTING EDEMA ) : Normal Auscultation: Bowel Sounds: Normal Tenderness: Normal Skin: Normal Musculoskeletal: Normal Psychiatric: Normal Mood Description: Calm Affect: Normal Speech Pattern: Clear - Laboratory and Diagnostics Result Diagrams: 12/30/21 05:40 12/30/21 05:40 Labs: Laboratory WBC 6.7 X10^3/uL (3.6-10.0) 12/30/21 05:40 RBC 4.06 X10^6/uL (4.7-6.0) L 12/30/21 05:40 Hgb 13.2 g/dL (13.5-18.0) L 12/30/21 05:40 Hct 39.2 % (42.0-54.0) L 12/30/21 05:40 MCV 96.7 fL (80.0-100.0) 12/30/21 05:40 MCH 32.5 pg (27.0-34.0) 12/30/21 05:40 MCHC 33.6 g/dL (33.0-35.0) 12/30/21 05:40 RDW 15.0 % (11.6-16.5) 12/30/21 05:40 Plt Count 164 X10^3/uL (150.0-450.0) 12/30/21 05:40 MPV 7.5 fL (7.4-11.0) 12/30/21 05:40 Neut % (Auto) 70.2 % (42.0-75.0) 12/30/21 05:40 Lymph % (Auto) 19.0 % (21.0-51.0) L 12/30/21 05:40 [place] % (Auto) 8.7 % (0.0-13.0) 12/30/21 05:40 Eos % (Auto) 1.8 % (0.9-2.9) 12/30/21 05:40 Baso % (Auto) 0.3 % (0.2-1.0) 12/30/21 05:40 Neut # (Auto) 4.7 x10^3/uL (2.2-4.8) 12/30/21 05:40 Lymph # (Auto) 1.3 X10^3/uL (1.3-2.9) 12/30/21 05:40 [place] # (Auto) 0.6 x10^3/uL (0.3-0.8) 12/30/21 05:40 Eos # (Auto) 0.1 x10^3/uL (0.0-0.2) 12/30/21 05:40 Baso # (Auto) 0.0 X10^3/uL (0.0-0.1) 12/30/21 05:40 Absolute Nucleated RBC 0.0 /100WBC 12/30/21 05:40 D-Dimer 3.23 ug/ml (0.0-0.57) H* 12/24/21 16:25 Sodium 140 mmol/L (136-145) 12/30/21 05:40 Corrected Sodium 140 mmol/L (136-145) 12/30/21 05:40 Potassium 3.7 mmol/L (3.5-5.1) 12/30/21 05:40 Chloride 98 mmol/L (98-107) 12/30/21 05:40 Carbon Dioxide 37.6 mmol/L (21-32) H 12/30/21 05:40 BUN 23 mg/dL (7-18) H 12/30/21 05:40 Creatinine 1.32 mg/dL (0.70-1.30) H 12/30/21 05:40 Est GFR (MDRD) Af Amer > 60 (>60) 12/30/21 05:40 Est GFR (MDRD) Non-Af 54 (>60) L 12/30/21 05:40 Glucose 120 mg/dL (65-99) H 12/30/21 05:40 Calcium 9.0 mg/dL (8.5-10.1) 12/30/21 05:40 Corrected Calcium 9.1 mg/dL (8.5-10.1) 12/28/21 05:03 Magnesium 2.1 mg/dL (1.7-2.9) 12/30/21 05:40 Total Bilirubin 0.80 mg/dL (0.2-1.0) 12/28/21 05:03 AST 23 Units/L (15-37) 12/28/21 05:03 ALT 24 Units/L (12-78) 12/28/21 05:03 Alkaline Phosphatase 95 Units/L (46-116) 12/28/21 05:03 B-Natriuretic Peptide 960 pg/mL (0-79) H* 12/29/21 05:55 Total Protein 5.9 g/dL (6.4-8.2) L 12/28/21 05:03 Albumin 2.9 g/dL (3.4-5.0) L 12/28/21 05:03 Globulin 3.0 g/dL (2.5-4.5) 12/28/21 05:03 Albumin/Globulin Ratio 1.0 Ratio (1.1-2.1) L 12/28/21 05:03 Specimen Type Catherized urine 12/24/21 17:05 Urine Color Yellow (YELLOW) 12/24/21 17:05 Urine Appearance Clear (CLEAR) 12/24/21 17:05 Urine pH 6.0 (5.0 - 8.0) 12/24/21 17:05 Ur Specific Calder 1.015 (1.000-1.030) 12/24/21 17:05 Urine Protein 4+ (NEGATIVE) 12/24/21 17:05 Urine Glucose (UA) 1+ (NEGATIVE) 12/24/21 17:05 Urine Ketones Negative (NEGATIVE) 12/24/21 17:05 Urine Blood 3+ (NEGATIVE) 12/24/21 17:05 Urine Nitrite Negative (NEGATIVE) 12/24/21 17:05 Urine Bilirubin Negative (NEGATIVE) 12/24/21 17:05 Urine Urobilinogen Normal (NORMAL) 12/24/21 17:05 Ur Leukocyte Esterase Negative (NEGATIVE) 12/24/21 17:05 Urine RBC 5-10 /HPF (0-3) A 12/24/21 17:05 Urine WBC 0-2 /HPF (0-5) 12/24/21 17:05 Ur Squamous Epith Cells Rare /HPF (NEGATIVE) 12/24/21 17:05 Urine Bacteria Trace /HPF (NEGATIVE) 12/24/21 17:05 Ur Culture Indicated? No/not indicated 12/24/21 17:05 Digoxin 0.80 ng/mL (0.9-2) L 12/29/21 11:23 SARS-CoV-2 (PCR) Negative (NEGATIVE) 12/24/21 18:27 - Plan (1) CHF (congestive heart failure) Status: Chronic Qualifiers: Heart failure type: unspecified Heart failure chronicity: acute on chronic Qualified Code(s): I50.9 - Heart failure, unspecified Plan: NORMAL SALINE AT 50 ML/HR, LASIX 40MG IV BID, ALBUMIN 25% DAILY, LEVAQUIN 250MG IV DAILY, ZOSYN 3.375G IV TID, DUONEBS QID, DIGOXIN 0.125G PO DAILY, LOVENOX 60MG SC Q12H, MAG OX 200MG PO QID, FLOMAX 0.4MG PO BID, IMDUR 30MG PO QAM, NEURONTIN 300MG PO HS, FLEXERIL 5MG PO Q8H, POTASSIUM AND MAGNESIUM PROTOCOLS (2) Pneumonia Status: Acute Qualifiers: Pneumonia type: due to unspecified organism Laterality: right Lung location: upper lobe of lung Qualified Code(s): J18.9 - Pneumonia, unspecified organism (3) COPD exacerbation Status: Acute (4) Hypokalemia Status: Acute (5) Hypomagnesemia Status: Acute (6) BPH (benign prostatic hyperplasia) Status: Chronic Qualifiers: Lower urinary tract symptom presence: unspecified whether lower urinary tract symptoms present Qualified Code(s): N40.0 - Benign prostatic hyperplasia without lower urinary tract symptoms (7) CAD (coronary artery disease) Status: Chronic Qualifiers: Coronary Disease-Associated Artery/Lesion type: [place] artery [place] vs. transplanted heart: [place] heart Associated angina: unspecified whether angina present Qualified Code(s): I25.10 - Atherosclerotic heart disease of [place] coronary artery without angina pectoris
[2021-12-30] MEDS: NEURONTIN CAP 300 MG PO SCH (20:45)
[2021-12-30] MEDS: MILK OF MAGNESIA PO PRN (21:00)
[2021-12-30] MEDS: COLACE CAP 100 MG PO PRN (21:00)
[2021-12-30 21:42] LABS: ALANINE AMINOTRANSFERASE 30 Units/L (12-78); ALBUMIN 3.2 g/dL (3.4-5.0); ALKALINE PHOSPHATASE 88 Units/L (46-116); ASPARTATE AMINO TRANSFERASE 28 Units/L (15-37); COR CA(FOR HYPOALB) 9.6 mg/dL (8.5-10.1); TOTAL PROTEIN 6.3 g/dL (6.4-8.2)
[2021-12-30 22:53] LABS: COR CA(FOR HYPOALB) 9.7 mg/dL (8.5-10.1); TOTAL PROTEIN 6.1 g/dL (6.4-8.2)
[2021-12-31 04:57] LABS: BASOPHILS % (AUTO) 0.4 % (0.2-1.0); EOSINOPHILS # (AUTO) 0.1 x10^3/uL (0.0-0.2); EOSINOPHILS % (AUTO) 1.7 % (0.9-2.9); HEMATOCRIT 37.4 % (42.0-54.0); HEMOGLOBIN 12.7 g/dL (13.5-18.0); LYMPHOCYTES # (AUTO) 1.2 X10^3/uL (1.3-2.9); LYMPHOCYTES % (AUTO) 18.5 % (21.0-51.0); MEAN CORPUSCULAR HEMOGLOBIN 32.2 pg (27.0-34.0); MEAN CORPUSCULAR HGB CONC 33.9 g/dL (33.0-35.0); MEAN CORPUSCULAR VOLUME 94.9 fL (80.0-100.0); MONOCYTES # (AUTO) 0.7 x10^3/uL (0.3-0.8); MONOCYTES % (AUTO) 10.1 % (0.0-13.0); NEUTROPHILS # (AUTO) 4.6 x10^3/uL (2.2-4.8); NEUTROPHILS % (AUTO) 69.3 % (42.0-75.0); RED BLOOD COUNT 3.94 X10^6/uL (4.7-6.0); RED CELL DISTRIBUTION WIDTH 15.2 % (11.6-16.5); WHITE BLOOD COUNT 6.7 X10^3/uL (3.6-10.0)
[2021-12-31 05:06] LABS: ALBUMIN 3.3 g/dL (3.4-5.0); CARBON DIOXIDE 41.3 mmol/L (21-32); COR CA(FOR HYPOALB) 9.6 mg/dL (8.5-10.1); CREATININE 1.51 mg/dL (0.70-1.30); TOTAL PROTEIN 6.3 g/dL (6.4-8.2)
[2021-12-31] MEDS: NS 1,000 ML IV 1,000 ML IV SCH (05:41)
[2021-12-31] MEDS: ZOSYN VIAL 3.375 GRAMS 3.375 G in NS 100 ML IV 100 ML IV SCH ×3 (05:42→21:00)
--- NOTE | 2021-12-31 06:03 | RAD ---
HISTORYShortness of breathSTUDYChest AP [id number]/10/2022FINDINGSPati ent is rotated to the left. There is a pacemaker present on the left. Patient is status post median sternotomy and CABG. Heart is mildly enlarged. No congestive heart failure is noted. Right upper lobe infiltrate is unchanged. Remainder of the lung toth appear clear. No pleural effusions are identified. Bony thorax is unremarkable.IMPRESSIONNo change right upper lobe infiltrateMild cardiomegaly without congestive heart failure, unchangedElectronically signed by: BENJAMIN WHITAKER (December 31, 2021 06:01:07)
[2021-12-31] MEDS: DUONEB 0.5 MG/3 MG (3 mL) NEB SCH ×4 (08:45→20:28)
[2021-12-31] MEDS: LASIX IVP SCH ×2 (09:14→17:15)
[2021-12-31] MEDS: LEVAQUIN PREMIX IV 250 MG 250 MG/50 ML BAG IV SCH (09:16)
[2021-12-31] MEDS: FLOMAX PO SCH ×2 (09:17→20:55)
[2021-12-31] MEDS: COLACE CAP 100 MG PO PRN (09:17)
[2021-12-31] MEDS: PLAVIX PO SCH (09:18)
[2021-12-31] MEDS: LANOXIN or DIGITEK PO SCH (09:18)
[2021-12-31] MEDS: MILK OF MAGNESIA PO PRN (09:18)
[2021-12-31] MEDS: LOVENOX INJ 60 MG SYR SC SCH ×2 (09:19→21:53)
[2021-12-31] MEDS: MAG-OX TAB PO SCH ×4 (09:19→20:56)
[2021-12-31] MEDS: IMDUR PO SCH (09:19)
[2021-12-31] MEDS: ALBUMIN HUMAN 25%- 100 ML 100 ML IV SCH (10:00)
--- NOTE | 2021-12-31 12:36 | PCM.PROG ---
Progress Note - Progress Note for Day of Date of Exam: 12/31/21 - Subjective Subjective: WAS ADMITTED ON 12/24/21 FOR TREATMENT OF CHF, PNEUMONIA, AND COPD EXACERBATION. TODAY, HE IS ALERT AND ORIENTED, SITTING UP IN CHAIR ON MORNING ROUNDS. HE AWAKENS TO VERBAL STIMULI. HE CONTINUES WITH COMPLAINTS OF SHORTNESS OF BREATH AND WEAKNESS TODAY. ON EXAMINATION, HEART IS REGULAR IN RATE AND RHYTHM. BILATERAL LUNGS NOTED WITH DIMINISHED LUNG SOUNDS THROUGHOUT. ABDOMEN IS ROUND, SOFT, AND NON-TENDER WITH NORMAL BOWEL SOUNDS NOTED IN ALL QUADRANTS. BLE NOTED WITH TRACE EDEMA. HIS VITALS THIS MORNING ARE: 97.8-100-20-90%NC@2-150/70. LABS WERE OBTAINED. ABNORMAL LAB VALUES INCLUDE THE FOLLOWING: RBC 3.94, HGB 12.7, HCT 37.4, CHLORIDE 97, CARBON DIOXIDE 41.3, BUN 23, CREATININE 1.51, GLUCOSE 130, BNP 583, TOTAL PROTEIN 6.3, ALBUMIM 3.3. A CHEST XRAY WAS OBTAINED AND REVEALED: Patient is rotated to the left. There is a pacemaker present on the left. Patient is status post median sternotomy and CABG. Heart is mildly enlarged. No congestiveheart failure is noted. Right upper lobe infiltrate is unchanged. Remainder of the lung toth appear clear. No pleural effusions are identified. Bony thorax is unremarkable. HE IS CURRENTLY RECEIVING NORMAL SALINE AT 50 ML/HR, LEVAQUIN 250MG IV DAILY, ZOSYN 3.375G IV TID, LASIX 40MG IV BID, ALBUMIN 25% IV DAILY, DUONEBS QID, DIGOXIN 0.125G PO DAILY, LOVENOX 60MG SC Q12H, MAG OX 200MG PO QID, FLOMAX 0.4MG PO BID, IMDUR 30MG PO QAM, NEURONTIN 300MG PO HS, FLEXERIL 5MG PO Q8H PRN, COLACE 200MG PO Q12H, MILK OF MAGNESIA 30MG PO Q12H, AND THE POTASSIUM AND MAGNESIUM PROTOCOLS. WE WILL CONTINUE WITH CURRENT PLAN OF CARE TODAY. OTHERWISE, WE PLAN TO FOLLOW UP WITH AM LABS AND CHEST XRAY AND CONTINUE TO MONITOR. TIME SPENT ON CLINICAL ASSESSMENT, REVIEWING LABS AND IMAGING, DECISION MAKING, AND DOCUMENTATION GREATER THAN 45 MINUTES. - Past Medical Family Social History Past Med/Fam/Surg Hx: No changes since H&P Allergies: Allergies No Known Drug Allergies Allergy (Verified 12/25/21 09:23) - Review of Systems ROS: No change since H&P - Vital Signs and I&O's Vital Signs: Temperature 97.8 F Pulse Rate [Left Brachial] 110 Pulse Rate 108 Respiratory Rate 20 Blood Pressure [Left Arm] 150/70 Blood Pressure [Right Arm] 136/77 O2 Sat by Pulse Oximetry 93 Intake and Output: Intake & Output 12/29/21 12/30/21 12/31/21 01/01/22 11:59 11:59 11:59 11:59 Intake Total 1310 / 1310 675 / 675 948 / 948 Output Total 2980 / 2980 350 / 350 625 / 625 Balance -1670 / -1670 325 / 325 323 / 323 - Physical Exam Oriented: Normal Eyes: Normal Ear: Normal Nose: Normal Throat: Normal Respiratory: Generalized, Diminished Cardiovascular: Edema (BLE TRACE EDEMA) : Normal Auscultation: Bowel Sounds: Normal Palpation: Normal Tenderness: Normal Skin: Normal Musculoskeletal: Normal Psychiatric: Normal Mood Description: Calm Affect: Normal Speech Pattern: Clear - Laboratory and Diagnostics Result Diagrams: 12/31/21 04:22 12/31/21 04:22 Labs: Laboratory WBC 6.7 X10^3/uL (3.6-10.0) 12/31/21 04:22 RBC 3.94 X10^6/uL (4.7-6.0) L 12/31/21 04:22 Hgb 12.7 g/dL (13.5-18.0) L 12/31/21 04:22 Hct 37.4 % (42.0-54.0) L 12/31/21 04:22 MCV 94.9 fL (80.0-100.0) 12/31/21 04:22 MCH 32.2 pg (27.0-34.0) 12/31/21 04:22 MCHC 33.9 g/dL (33.0-35.0) 12/31/21 04:22 RDW 15.2 % (11.6-16.5) 12/31/21 04:22 Plt Count 182 X10^3/uL (150.0-450.0) 12/31/21 04:22 MPV 8.0 fL (7.4-11.0) 12/31/21 04:22 Neut % (Auto) 69.3 % (42.0-75.0) 12/31/21 04: Lymph % (Auto) 18.5 % (21.0-51.0) L 12/31/21 04:22 [place] % (Auto) 10.1 % (0.0-13.0) 12/31/21 04:22 Eos % (Auto) 1.7 % (0.9-2.9) 12/31/21 04:22 Baso % (Auto) 0.4 % (0.2-1.0) 12/31/21 04:22 Neut # (Auto) 4.6 x10^3/uL (2.2-4.8) 12/31/21 04: Lymph # (Auto) 1.2 X10^3/uL (1.3-2.9) L 12/31/21 04:22 [place] # (Auto) 0.7 x10^3/uL (0.3-0.8) 12/31/21 04:22 Eos # (Auto) 0.1 x10^3/uL (0.0-0.2) 12/31/21 04:22 Baso # (Auto) 0.0 X10^3/uL (0.0-0.1) 12/31/21 04: Absolute Nucleated RBC 0.0 /100WBC 12/31/21 04:22 D-Dimer 3.23 ug/ml (0.0-0.57) H* 12/24/21 16:25 Sodium 141 mmol/L (136-145) 12/31/21 04:22 Corrected Sodium 142 mmol/L (136-145) 12/31/21 04:22 Potassium 3.6 mmol/L (3.5-5.1) 12/31/21 04:22 Chloride 97 mmol/L (98-107) L 12/31/21 04:22 Carbon Dioxide 41.3 mmol/L (21-32) H 12/31/21 04:22 BUN 23 mg/dL (7-18) H 12/31/21 04:22 Creatinine 1.51 mg/dL (0.70-1.30) H 12/31/21 04:22 Est GFR (MDRD) Af Amer 56 (>60) L 05/11/22 04:22 Est GFR (MDRD) Non-Af 47 (>60) L 12/31/21 04:22 Glucose 130 mg/dL (65-99) H 12/31/21 04:22 Calcium 9.0 mg/dL (8.5-10.1) 12/31/21 04:22 Corrected Calcium 9.6 mg/dL (8.5-10.1) 12/31/21 04:22 Magnesium 2.1 mg/dL (1.7-2.9) 12/30/21 05:40 Total Bilirubin 0.80 mg/dL (0.2-1.0) 12/31/21 04:22 AST 23 Units/L (15-37) 12/31/21 04:22 ALT 25 Units/L (12-78) 12/31/21 04:22 Alkaline Phosphatase 82 Units/L (46-116) 12/31/21 04:22 B-Natriuretic Peptide 583 pg/mL (0-79) H* 12/31/21 04:22 Total Protein 6.3 g/dL (6.4-8.2) L 12/31/21 04:22 Albumin 3.3 g/dL (3.4-5.0) L 12/31/21 04:22 Globulin 3.0 g/dL (2.5-4.5) 12/31/21 04:22 Albumin/Globulin Ratio 1.1 Ratio (1.1-2.1) 12/31/21 04:22 Specimen Type Catherized urine 12/24/21 17:05 Urine Color Yellow (YELLOW) 12/24/21 17:05 Urine Appearance Clear (CLEAR) 12/24/21 17:05 Urine pH 6.0 (5.0 - 8.0) 12/24/21 17:05 Ur Specific [place] 1.015 (1.000-1.030) 12/24/21 17:05 Urine Protein 4+ (NEGATIVE) 12/24/21 17:05 Urine Glucose (UA) 1+ (NEGATIVE) 12/24/21 17:05 Urine Ketones Negative (NEGATIVE) 12/24/21 17:05 Urine Blood 3+ (NEGATIVE) 12/24/21 17:05 Urine Nitrite Negative (NEGATIVE) 12/24/21 17:05 Urine Bilirubin Negative (NEGATIVE) 12/24/21 17:05 Urine Urobilinogen Normal (NORMAL) 12/24/21 17:05 Ur Leukocyte Esterase Negative (NEGATIVE) 12/24/21 17:05 Urine RBC 5-10 /HPF (0-3) A 12/24/21 17:05 Urine WBC 0-2 /HPF (0-5) 12/24/21 17:05 Ur Squamous Epith Cells Rare /HPF (NEGATIVE) 12/24/21 17:05 Urine Bacteria Trace /HPF (NEGATIVE) 12/24/21 17:05 Ur Culture Indicated? No/not indicated 12/24/21 17:05 Digoxin 0.80 ng/mL (0.9-2) L 12/29/21 11:23 SARS-CoV-2 (PCR) Negative (NEGATIVE) 12/24/21 18:27 - Plan (1) CHF (congestive heart failure) Status: Chronic Qualifiers: Heart failure type: unspecified Heart failure chronicity: acute on chronic Qualified Code(s): I50.9 - Heart failure, unspecified Plan: NORMAL SALINE AT 50 ML/HR, LASIX 40MG IV BID, ALBUMIN 25% DAILY, LEVAQUIN 250MG IV DAILY, ZOSYN 3.375G IV TID, DUONEBS QID, DIGOXIN 0.125G PO DAILY, LOVENOX 60MG SC Q12H, MAG OX 200MG PO QID, FLOMAX 0.4MG PO BID, IMDUR 30MG PO QAM, NEURONTIN 300MG PO HS, FLEXERIL 5MG PO Q8H, POTASSIUM AND MAGNESIUM PROTOCOLS (2) Pneumonia Status: Acute Qualifiers: Pneumonia type: due to unspecified organism Laterality: right Lung location: upper lobe of lung Qualified Code(s): J18.9 - Pneumonia, unspecified organism (3) COPD exacerbation Status: Acute (4) Hypokalemia Status: Acute (5) Hypomagnesemia Status: Acute (6) BPH (benign prostatic hyperplasia) Status: Chronic Qualifiers: Lower urinary tract symptom presence: unspecified whether lower urinary tract symptoms present Qualified Code(s): N40.0 - Benign prostatic hyperplasia without lower urinary tract symptoms (7) CAD (coronary artery disease) Status: Chronic Qualifiers: Coronary Disease-Associated Artery/Lesion type: [place] artery [place] vs. transplanted heart: [place] heart Associated angina: unspecified whether angina present Qualified Code(s): I25.10 - Atherosclerotic heart disease of [place] coronary artery without angina pectoris
[2021-12-31] MEDS: NEURONTIN CAP 300 MG PO SCH (20:55)
[2021-12-31] MEDS: FLEXERIL TAB 10 MG PO PRN (20:55)
[2022-01-01] MEDS: ZOSYN VIAL 3.375 GRAMS 3.375 G in NS 100 ML IV 100 ML IV SCH ×3 (05:27→21:01)
[2022-01-01 05:42] LABS: BASOPHILS % (AUTO) 0.4 % (0.2-1.0); EOSINOPHILS # (AUTO) 0.1 x10^3/uL (0.0-0.2); HEMATOCRIT 37.7 % (42.0-54.0); HEMOGLOBIN 12.8 g/dL (13.5-18.0); LYMPHOCYTES # (AUTO) 1.1 X10^3/uL (1.3-2.9); LYMPHOCYTES % (AUTO) 19.3 % (21.0-51.0); MEAN CORPUSCULAR HEMOGLOBIN 32.3 pg (27.0-34.0); MEAN CORPUSCULAR HGB CONC 33.9 g/dL (33.0-35.0); MEAN CORPUSCULAR VOLUME 95.3 fL (80.0-100.0); MONOCYTES # (AUTO) 0.6 x10^3/uL (0.3-0.8); MONOCYTES % (AUTO) 11.4 % (0.0-13.0); NEUTROPHILS # (AUTO) 3.8 x10^3/uL (2.2-4.8); NEUTROPHILS % (AUTO) 66.9 % (42.0-75.0); RED BLOOD COUNT 3.96 X10^6/uL (4.7-6.0); WHITE BLOOD COUNT 5.7 X10^3/uL (3.6-10.0)
[2022-01-01 05:53] LABS: ALANINE AMINOTRANSFERASE 26 Units/L (12-78); ALBUMIN 3.5 g/dL (3.4-5.0); ALKALINE PHOSPHATASE 82 Units/L (46-116); ASPARTATE AMINO TRANSFERASE 31 Units/L (15-37); BLOOD UREA NITROGEN 19 mg/dL (7-18); CALCIUM 8.9 mg/dL (8.5-10.1); CARBON DIOXIDE 38.3 mmol/L (21-32); CHLORIDE 98 mmol/L (98-107); CREATININE 1.39 mg/dL (0.70-1.30); SODIUM 140 mmol/L (136-145); TOTAL PROTEIN 6.5 g/dL (6.4-8.2); eGFR NON BLACK RACES 51 (>60)
--- NOTE | 2022-01-01 07:12 | RAD ---
HISTORYShortness of breathSTUDYChest AP [id number]/11/2022FINDINGSTher e is a pacemaker present on the left. Patient is status post median sternotomy and CABG. Heart is mildly enlarged. No congestive heart failure is noted. Minimal residual right upper lobe infiltrate remains. No pleural effusions are identified. Bony thorax is unremarkable.IMPRESSIONMinimal residual right upper lobe infiltrateNo change cardiomegaly without congestive heart failureElectronically signed by: BENJAMIN WHITAKER (January 01, 2022 07:11:36)
[2022-01-01] MEDS: DUONEB 0.5 MG/3 MG (3 mL) NEB SCH ×4 (09:13→21:58)
[2022-01-01] MEDS: POTASSIUM CHLORIDE LIQ 20 MEQ UDC PO PRN (09:35)
[2022-01-01] MEDS: ALBUMIN HUMAN 25%- 100 ML 100 ML IV SCH (09:36)
[2022-01-01] MEDS: LASIX IVP SCH ×2 (09:37→17:42)
[2022-01-01] MEDS: MAG-OX TAB PO SCH ×4 (09:37→20:34)
[2022-01-01] MEDS: FLOMAX PO SCH ×2 (09:38→20:33)
[2022-01-01] MEDS: LANOXIN or DIGITEK PO SCH (09:38)
[2022-01-01] MEDS: IMDUR PO SCH (09:38)
[2022-01-01] MEDS: LEVAQUIN PREMIX IV 250 MG 250 MG/50 ML BAG IV SCH (09:39)
[2022-01-01] MEDS: LOVENOX INJ 60 MG SYR SC SCH ×2 (09:54→20:35)
[2022-01-01] MEDS: PLAVIX PO SCH (09:54)
[2022-01-01] MEDS: NS 1,000 ML IV 1,000 ML IV SCH ×2 (10:25→23:04)
--- NOTE | 2022-01-01 11:48 | PCM.PROG ---
Progress Note - Progress Note for Day of Date of Exam: 01/01/22 - Subjective Subjective: WAS ADMITTED ON 12/24/21 FOR TREATMENT OF CHF, PNEUMONIA, AND COPD EXACERBATION. TODAY, HE IS LYING IN BED WITH EYES CLOSED ON MORNING ROUNDS. HE AWAKENS TO VERBAL STIMULI, BUT DOES NOT RESPOND VERBALLY OR FOLLOW COMMANDS. HE QUICKLY CLOSES EYES AGAIN. NURSING STAFF REPORTS THAT HE WAS DISORIENTED AND COMBATIVE THROUGHOUT THE NIGHT. HE ATTEMPTED TO GET OUT OF BED ON MULTIPLE OCCASIONS. ON EXAMINATION, HEART IS REGULAR IN RATE AND RHYTHM. BILATERAL LUNGS NOTED WITH DIMINISHED LUNG SOUNDS THROUGHOUT. ABDOMEN IS ROUND, SOFT, AND NON- TENDER WITH NORMAL BOWEL SOUNDS NOTED IN ALL QUADRANTS. BLE NOTED WITH TRACE EDEMA. HIS VITALS THIS MORNING ARE: 97.4-68-18-100%NC@2-174/87. LABS WERE OBTAINED. ABNORMAL LAB VALUES INCLUDE THE FOLLOWING: RBC 3.96, HGB 12.8, HCT 37.7, POTASSIUM 3.0, CARBON DIOXIDE 38.3, BUN 19, CREATININE 1.39, GLUCOSE 109, BNP 757. A CHEST XRAY WAS OBTAINED AND REVEALED: Minimal residual right upper lobe infiltrate. No change cardiomegaly without congestive heart failure. HE IS CURRENTLY RECEIVING NORMAL SALINE AT 50 ML/HR, LEVAQUIN 250MG IV DAILY, ZOSYN 3.375G IV TID, LASIX 40MG IV BID, ALBUMIN 25% IV DAILY, DUONEBS QID, DIGOXIN 0.125G PO DAILY, LOVENOX 60MG SC Q12H, MAG OX 200MG PO QID, FLOMAX 0.4MG PO BID, IMDUR 30MG PO QAM, NEURONTIN 300MG PO HS, FLEXERIL 5MG PO Q8H PRN, COLACE 200MG PO Q12H, MILK OF MAGNESIA 30MG PO Q12H, AND THE POTASSIUM AND MAGNESIUM PROTOCOLS. WE WILL CONTINUE WITH CURRENT PLAN OF CARE TODAY. WE WILL OBTAIN A BRAIN CT WITHOUT CONTRAST TO RULE OUT ACUTE PROCESS. OTHERWISE, WE PLAN TO FOLLOW UP WITH AM LABS AND CHEST XRAY AND CONTINUE TO MONITOR. TIME SPENT ON CLINICAL ASSESSMENT, REVIEWING LABS AND IMAGING, DECISION MAKING, AND DOCUMENTATION GREATER THAN 45 MINUTES. - Past Medical Family Social History Past Med/Fam/Surg Hx: No changes since H&P Allergies: Allergies No Known Drug Allergies Allergy (Verified 12/25/21 09:23) - Review of Systems ROS: No change since H&P - Vital Signs and I&O's Vital Signs: Temperature 97.4 F Pulse Rate [Left Brachial] 68 Pulse Rate 70 Respiratory Rate 18 Blood Pressure [Left Arm] 174/87 Blood Pressure [Right Arm] 142/62 O2 Sat by Pulse Oximetry 92 Intake and Output: Intake & Output 12/29/21 12/30/21 12/31/21 01/01/22 11:59 11:59 11:59 11:59 Intake Total 1310 / 1310 675 / 675 948 / 948 1121 / 1121 Output Total 2980 / 2980 350 / 350 625 / 625 500 / 500 Balance -1670 / -1670 325 / 325 323 / 323 621 / 621 - Physical Exam Oriented: Not Oriented Eyes: Normal Ear: Normal Nose: Normal Throat: Normal Respiratory: Generalized, Diminished Cardiovascular: Edema (TRACE EDEMA TO BLE) : Normal Auscultation: Bowel Sounds: Normal Palpation: Normal Tenderness: Normal Skin: Normal Musculoskeletal: Normal Psychiatric: Normal Mood Description: Calm Affect: Normal Speech Pattern: Inappropriate - Laboratory and Diagnostics Result Diagrams: 01/01/22 04:57 01/01/22 04:57 Labs: Laboratory WBC 5.7 X10^3/uL (3.6-10.0) 01/01/22 04:57 RBC 3.96 X10^6/uL (4.7-6.0) L 01/01/22 04:57 Hgb 12.8 g/dL (13.5-18.0) L 01/01/22 04:57 Hct 37.7 % (42.0-54.0) L 01/01/22 04:57 MCV 95.3 fL (80.0-100.0) 01/01/22 04:57 MCH 32.3 pg (27.0-34.0) 01/01/22 04:57 MCHC 33.9 g/dL (33.0-35.0) 01/01/22 04:57 RDW 15.0 % (11.6-16.5) 01/01/22 04:57 Plt Count 181 X10^3/uL (150.0-450.0) 01/01/22 04:57 MPV 8.0 fL (7.4-11.0) 01/01/22 04:57 Neut % (Auto) 66.9 % (42.0-75.0) 01/01/22 04:57 Lymph % (Auto) 19.3 % (21.0-51.0) L 01/01/22 04:57 [place] % (Auto) 11.4 % (0.0-13.0) 01/01/22 04:57 Eos % (Auto) 2.0 % (0.9-2.9) 01/01/22 04:57 Baso % (Auto) 0.4 % (0.2-1.0) 01/01/22 04:57 Neut # (Auto) 3.8 x10^3/uL (2.2-4.8) 01/01/22 04:57 Lymph # (Auto) 1.1 X10^3/uL (1.3-2.9) L 01/01/22 04:57 [place] # (Auto) 0.6 x10^3/uL (0.3-0.8) 01/01/22 04:57 Eos # (Auto) 0.1 x10^3/uL (0.0-0.2) 01/01/22 04:57 Baso # (Auto) 0.0 X10^3/uL (0.0-0.1) 01/01/22 04:57 Absolute Nucleated RBC 0.1 /100WBC 01/01/22 04:57 D-Dimer 3.23 ug/ml (0.0-0.57) H* 12/24/21 16:25 Sodium 140 mmol/L (136-145) 01/01/22 04:57 Corrected Sodium TNP 01/01/22 04:57 Potassium 3.0 mmol/L (3.5-5.1) L 01/01/22 04:57 Chloride 98 mmol/L (98-107) 01/01/22 04:57 Carbon Dioxide 38.3 mmol/L (21-32) H 01/01/22 04:57 BUN 19 mg/dL (7-18) H 01/01/22 04:57 Creatinine 1.39 mg/dL (0.70-1.30) H 01/01/22 04:57 Est GFR (MDRD) Af Amer > 60 (>60) 01/01/22 04:57 Est GFR (MDRD) Non-Af 51 (>60) L 01/01/22 04:57 Glucose 109 mg/dL (65-99) H 01/01/22 04:57 Calcium 8.9 mg/dL (8.5-10.1) 01/01/22 04:57 Corrected Calcium TNP 01/01/22 04:57 Magnesium 2.7 mg/dL (1.7-2.9) 01/01/22 04:47 Total Bilirubin 0.90 mg/dL (0.2-1.0) 01/01/22 04:57 AST 31 Units/L (15-37) 01/01/22 04:57 ALT 26 Units/L (12-78) 01/01/22 04:57 Alkaline Phosphatase 82 Units/L (46-116) 01/01/22 04:57 B-Natriuretic Peptide 757 pg/mL (0-79) H* 01/01/22 04:57 Total Protein 6.5 g/dL (6.4-8.2) 01/01/22 04:57 Albumin 3.5 g/dL (3.4-5.0) 01/01/22 04:57 Globulin 3.0 g/dL (2.5-4.5) 01/01/22 04:57 Albumin/Globulin Ratio 1.2 Ratio (1.1-2.1) 01/01/22 04:57 Specimen Type Catherized urine 12/24/21 17:05 Urine Color Yellow (YELLOW) 12/24/21 17:05 Urine Appearance Clear (CLEAR) 12/24/21 17:05 Urine pH 6.0 (5.0 - 8.0) 12/24/21 17:05 Ur Specific [place] 1.015 (1.000-1.030) 12/24/21 17:05 Urine Protein 4+ (NEGATIVE) 12/24/21 17:05 Urine Glucose (UA) 1+ (NEGATIVE) 12/24/21 17:05 Urine Ketones Negative (NEGATIVE) 12/24/21 17:05 Urine Blood 3+ (NEGATIVE) 12/24/21 17:05 Urine Nitrite Negative (NEGATIVE) 12/24/21 17:05 Urine Bilirubin Negative (NEGATIVE) 12/24/21 17:05 Urine Urobilinogen Normal (NORMAL) 12/24/21 17:05 Ur Leukocyte Esterase Negative (NEGATIVE) 12/24/21 17:05 Urine RBC 5-10 /HPF (0-3) A 12/24/21 17:05 Urine WBC 0-2 /HPF (0-5) 12/24/21 17:05 Ur Squamous Epith Cells Rare /HPF (NEGATIVE) 12/24/21 17:05 Urine Bacteria Trace /HPF (NEGATIVE) 12/24/21 17:05 Ur Culture Indicated? No/not indicated 12/24/21 17:05 Digoxin 0.80 ng/mL (0.9-2) L 12/29/21 11:23 SARS-CoV-2 (PCR) Negative (NEGATIVE) 12/24/21 18:27 - Plan (1) CHF (congestive heart failure) Status: Chronic Qualifiers: Heart failure type: unspecified Heart failure chronicity: acute on chronic Qualified Code(s): I50.9 - Heart failure, unspecified Plan: NORMAL SALINE AT 50 ML/HR, LASIX 40MG IV BID, ALBUMIN 25% DAILY, LEVAQUIN 250MG IV DAILY, ZOSYN 3.375G IV TID, DUONEBS QID, DIGOXIN 0.125G PO DAILY, LOVENOX 60MG SC Q12H, MAG OX 200MG PO QID, FLOMAX 0.4MG PO BID, IMDUR 30MG PO QAM, NEURONTIN 300MG PO HS, FLEXERIL 5MG PO Q8H, POTASSIUM AND MAGNESIUM PROTOCOLS (2) Pneumonia Status: Acute Qualifiers: Pneumonia type: due to unspecified organism Laterality: right Lung location: upper lobe of lung Qualified Code(s): J18.9 - Pneumonia, unspecified organism (3) COPD exacerbation Status: Acute (4) AMS (altered mental status) Status: Acute Qualifiers: Altered mental status type: transient alteration of awareness Qualified Code(s): R40.4 - Transient alteration of awareness (5) Hypokalemia Status: Acute (6) Hypomagnesemia Status: Acute (7) BPH (benign prostatic hyperplasia) Status: Chronic Qualifiers: Lower urinary tract symptom presence: unspecified whether lower urinary tract symptoms present Qualified Code(s): N40.0 - Benign prostatic hyperplasia without lower urinary tract symptoms (8) CAD (coronary artery disease) Status: Chronic Qualifiers: Coronary Disease-Associated Artery/Lesion type: [place] artery [place] vs. transplanted heart: [place] heart Associated angina: unspecified whether angina present Qualified Code(s): I25.10 - Atherosclerotic heart disease of [place] coronary artery without angina pectoris
--- NOTE | 2022-01-01 12:29 | CT ---
HISTORYAMSSTUDYBRAIN W/O CONCOMPARISONNone availableTECHNIQUEAxial images through the head were performed without contrast. CT scan was performed following ALARA (As low as Reasonably Achievable).Coronal and Sagittal reformatted images were performed.FINDINGSThe ventricles are symmetric, there is mild central and peripheral volume loss.There is a focal hypoattenuation in the medial left cerebellum that could correspond with an acute/early subacute infarct. There is no evidence of acute hemorrhage, no extra-axial collections with prominence of the CSF spaces in the bifrontal region.There is an old lacunar infarct in the left thalamus.No evidence of sellar masses.No acute fractures, the mastoid cells are clear. There are bilateral internal fixation of the anterior maxillary sinuses wall, old fracture of the nasal region. No sellar masses.IMPRESSIONAcute/early subacute left medial cerebellar infarct, no evidence of hemorrhagic transformation. 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 Mild peripheral volume loss.Electronically signed by: Bebe Liang (January 01, 2022 12:28:17)
[2022-01-01] MEDS: NEURONTIN CAP 300 MG PO SCH (20:33)
[2022-01-01] MEDS: FLEXERIL TAB 10 MG PO PRN (20:33)
[2022-01-02] MEDS: ZOSYN VIAL 3.375 GRAMS 3.375 G in NS 100 ML IV 100 ML IV SCH ×3 (05:04→21:51)
[2022-01-02 05:58] LABS: BASOPHILS % (AUTO) 0.5 % (0.2-1.0); EOSINOPHILS # (AUTO) 0.1 x10^3/uL (0.0-0.2); EOSINOPHILS % (AUTO) 1.7 % (0.9-2.9); HEMATOCRIT 37.9 % (42.0-54.0); HEMOGLOBIN 13.1 g/dL (13.5-18.0); LYMPHOCYTES # (AUTO) 1.3 X10^3/uL (1.3-2.9); LYMPHOCYTES % (AUTO) 18.2 % (21.0-51.0); MEAN CORPUSCULAR HEMOGLOBIN 32.6 pg (27.0-34.0); MEAN CORPUSCULAR HGB CONC 34.4 g/dL (33.0-35.0); MEAN CORPUSCULAR VOLUME 94.7 fL (80.0-100.0); MEAN PLATELET VOLUME 7.8 fL (7.4-11.0); MONOCYTES # (AUTO) 0.8 x10^3/uL (0.3-0.8); MONOCYTES % (AUTO) 10.9 % (0.0-13.0); NEUTROPHILS # (AUTO) 4.9 x10^3/uL (2.2-4.8); NEUTROPHILS % (AUTO) 68.7 % (42.0-75.0); WHITE BLOOD COUNT 7.2 X10^3/uL (3.6-10.0)
[2022-01-02 06:19] LABS: ALANINE AMINOTRANSFERASE 25 Units/L (12-78); ALBUMIN 3.5 g/dL (3.4-5.0); ALKALINE PHOSPHATASE 90 Units/L (46-116); ASPARTATE AMINO TRANSFERASE 30 Units/L (15-37); BLOOD UREA NITROGEN 21 mg/dL (7-18); CALCIUM 9.2 mg/dL (8.5-10.1); CARBON DIOXIDE 33.6 mmol/L (21-32); CHLORIDE 99 mmol/L (98-107); COR NA(FOR HYPERGLY) 140 mmol/L (136-145); CREATININE 1.63 mg/dL (0.70-1.30); MAGNESIUM 2.3 mg/dL (1.7-2.9); SODIUM 139 mmol/L (136-145); TOTAL PROTEIN 6.5 g/dL (6.4-8.2); eGFR NON BLACK RACES 43 (>60)
--- NOTE | 2022-01-02 06:49 | RAD ---
HISTORYSOBSTUDYCHEST, 1 [id number]/12/2022.TECHNIQUEAP view of the chestFINDINGSLeft chest wall pacemaker with leads in good position. Status post median sternotomy. The cardiac silhouette is stably enlarged. Mediastinal contours appear stable. Similar appearing mild patchy left base opacity. No definite pleural effusion or pneumothorax.IMPRESSIONNo significant change. Mild patchy left base opacity may represent pneumonia.Electronically signed by: Greg Yoo (January 02, 2022 06:47:30)
[2022-01-02] MEDS: POTASSIUM CHLORIDE LIQ 20 MEQ UDC PO PRN (07:29)
[2022-01-02] MEDS: FLEXERIL TAB 10 MG PO PRN ×2 (07:30→21:51)
[2022-01-02] MEDS: LEVAQUIN PREMIX IV 250 MG 250 MG/50 ML BAG IV SCH (08:45)
[2022-01-02] MEDS: ALBUMIN HUMAN 25%- 100 ML 100 ML IV SCH (08:45)
[2022-01-02] MEDS: LASIX IVP SCH ×2 (08:47→17:40)
[2022-01-02] MEDS: PLAVIX PO SCH (08:48)
[2022-01-02] MEDS: DUONEB 0.5 MG/3 MG (3 mL) NEB SCH ×4 (08:49→20:30)
[2022-01-02] MEDS: MAG-OX TAB PO SCH ×4 (08:49→21:57)
[2022-01-02] MEDS: LANOXIN or DIGITEK PO SCH (08:49)
[2022-01-02] MEDS: FLOMAX PO SCH ×2 (08:50→21:50)
[2022-01-02] MEDS: IMDUR PO SCH (08:50)
[2022-01-02] MEDS: LOVENOX INJ 60 MG SYR SC SCH ×2 (08:50→21:54)
[2022-01-02] MEDS: HALDOL INJ IM PRN ×2 (09:35→14:50)
--- NOTE | 2022-01-02 10:01 | PCM.PROG ---
Progress Note - Progress Note for Day of Date of Exam: 01/02/22 - Subjective Subjective: WAS ADMITTED ON 12/24/21 FOR TREATMENT OF CHF, PNEUMONIA, AND COPD EXACERBATION. TODAY, HE IS LYING IN BED WITH EYES CLOSED ON MORNING ROUNDS. HE AWAKENS TO VERBAL STIMULI. HE AKNOWLEDGES OUR PRESENCE, BUT IS DISORIENTED AND DOES NOT FOLLOW COMMANDS. NURSING STAFF REPORTS THAT HE WAS DISORIENTED AND COMBATIVE THROUGHOUT THE NIGHT. HE ATTEMPTED TO GET OUT OF BED ON MULTIPLE OCCASIONS. ON EXAMINATION, HEART IS REGULAR IN RATE AND RHYTHM. BILATERAL LUNGS NOTED WITH DIMINISHED LUNG SOUNDS THROUGHOUT. ABDOMEN IS ROUND, SOFT, AND NON- TENDER WITH NORMAL BOWEL SOUNDS NOTED IN ALL QUADRANTS. BLE NOTED WITH TRACE EDEMA. HIS VITALS THIS MORNING ARE: 98.5-76-20-93%-178/81. LABS WERE OBTAINED. ABNORMAL LAB VALUES INCLUDE THE FOLLOWING: RBC 4.00, HGB 13.1, HCT 37.9, POTASSIUM 3.4, CARBON DIOXIDE 33.6, BUN 21, CREATININE 1.63, GLUCOSE 124, BNP 636. A CHEST XRAY WAS OBTAINED AND REVEALED: No significant change. Mild patchy left base opacity may represent pneumonia. BRAIN CT WAS OBTAINED YESTERDAY AND REVEALED: Acute/early subacute left medial cerebellar infarct, no evidence of hemorrhagic transformation. 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 Mild peripheral volume loss. HE IS CURRENTLY RECEIVING NORMAL SALINE AT 50 ML/HR, LEVAQUIN 250MG IV DAILY, ZOSYN 3.375G IV TID, LASIX 40MG IV BID, ALBUMIN 25% IV DAILY, DUONEBS QID, DIGOXIN 0.125G PO DAILY, LOVENOX 60MG SC Q12H, MAG OX 200MG PO QID, FLOMAX 0.4MG PO BID, IMDUR 30MG PO QAM, NEURONTIN 300MG PO HS, FLEXERIL 5MG PO Q8H PRN, COLACE 200MG PO Q12H, MILK OF MAGNESIA 30MG PO Q12H, AND THE POTASSIUM AND MAGNESIUM PROTOCOLS. WE WILL CONTINUE WITH CURRENT PLAN OF CARE TODAY AND ADD ROSUVASTATIN 10MG PO HS. WE WILL ALSO ADD ATIVAN 2MG IV Q6H PRN FOR INCREASED AGITATION. PHYSICAL THERAPY WILL CONTINUE TO WORK WITH PATIENT DAILY. OTHERWISE, WE PLAN TO FOLLOW UP WITH AM LABS AND CHEST XRAY AND CONTINUE TO MONITOR. TIME SPENT ON CLINICAL ASSESSMENT, REVIEWING LABS AND IMAGING, DECISION MAKING, AND DOCUMENTATION GREATER THAN 45 MINUTES. - Past Medical Family Social History Past Med/Fam/Surg Hx: No changes since H&P Allergies: Allergies No Known Drug Allergies Allergy (Verified 12/25/21 09:23) - Review of Systems ROS: No change since H&P - Vital Signs and I&O's Vital Signs: Temperature 98.5 F Pulse Rate [Left Brachial] 76 Pulse Rate 80 Respiratory Rate 20 Blood Pressure [Left Arm] 178/81 Blood Pressure [Right Arm] 142/62 O2 Sat by Pulse Oximetry 95 Intake and Output: Intake & Output 12/30/21 12/31/21 01/01/22 01/02/22 11:59 11:59 11:59 11:59 Intake Total 675 / 675 948 / 948 1121 / 1121 785 / 785 Output Total 350 / 350 625 / 625 500 / 500 400 / 400 Balance 325 / 325 323 / 323 621 / 621 385 / 385 - Physical Exam Oriented: Not Oriented Eyes: Normal Ear: Normal Nose: Normal Throat: Normal Respiratory: Generalized, Diminished Cardiovascular: Edema (TRACE EDEMA TO BLE) : Normal Auscultation: Bowel Sounds: Normal Tenderness: Normal Skin: Normal Musculoskeletal: Normal Psychiatric: Normal Mood Description: Calm Affect: Normal Speech Pattern: Clear - Laboratory and Diagnostics Result Diagrams: 01/02/22 04:50 01/02/22 04:50 Labs: Laboratory WBC 7.2 X10^3/uL (3.6-10.0) 01/02/22 04:50 RBC 4.00 X10^6/uL (4.7-6.0) L 01/02/22 04:50 Hgb 13.1 g/dL (13.5-18.0) L 01/02/22 04:50 Hct 37.9 % (42.0-54.0) L 01/02/22 04:50 MCV 94.7 fL (80.0-100.0) 01/02/22 04:50 MCH 32.6 pg (27.0-34.0) 01/02/22 04:50 MCHC 34.4 g/dL (33.0-35.0) 01/02/22 04:50 RDW 15.0 % (11.6-16.5) 01/02/22 04:50 Plt Count 188 X10^3/uL (150.0-450.0) 01/02/22 04:50 MPV 7.8 fL (7.4-11.0) 01/02/22 04:50 Neut % (Auto) 68.7 % (42.0-75.0) 01/02/22 04:50 Lymph % (Auto) 18.2 % (21.0-51.0) L 01/02/22 04:50 [place] % (Auto) 10.9 % (0.0-13.0) 01/02/22 04:50 Eos % (Auto) 1.7 % (0.9-2.9) 01/02/22 04:50 Baso % (Auto) 0.5 % (0.2-1.0) 01/02/22 04:50 Neut # (Auto) 4.9 x10^3/uL (2.2-4.8) H 01/02/22 04:50 Lymph # (Auto) 1.3 X10^3/uL (1.3-2.9) 01/02/22 04:50 [place] # (Auto) 0.8 x10^3/uL (0.3-0.8) 01/02/22 04:50 Eos # (Auto) 0.1 x10^3/uL (0.0-0.2) 01/02/22 04:50 Baso # (Auto) 0.0 X10^3/uL (0.0-0.1) 01/02/22 04:50 Absolute Nucleated RBC 0.1 /100WBC 01/02/22 04:50 D-Dimer 3.23 ug/ml (0.0-0.57) H* 12/24/21 16:25 Sodium 139 mmol/L (136-145) 01/02/22 04:50 Corrected Sodium 140 mmol/L (136-145) 01/02/22 04:50 Potassium 3.4 mmol/L (3.5-5.1) L 01/02/22 04:50 Chloride 99 mmol/L (98-107) 01/02/22 04:50 Carbon Dioxide 33.6 mmol/L (21-32) H 01/02/22 04:50 BUN 21 mg/dL (7-18) H 01/02/22 04:50 Creatinine 1.63 mg/dL (0.70-1.30) H 01/02/22 04:50 Est GFR (MDRD) Af Amer 52 (>60) L 01/02/22 04:50 Est GFR (MDRD) Non-Af 43 (>60) L 01/02/22 04:50 Glucose 124 mg/dL (65-99) H 01/02/22 04:50 Calcium 9.2 mg/dL (8.5-10.1) 01/02/22 04:50 Corrected Calcium TNP 01/02/22 04:50 Magnesium 2.3 mg/dL (1.7-2.9) 01/02/22 04:50 Total Bilirubin 0.90 mg/dL (0.2-1.0) 01/02/22 04:50 AST 30 Units/L (15-37) 01/02/22 04:50 ALT 25 Units/L (12-78) 01/02/22 04:50 Alkaline Phosphatase 90 Units/L (46-116) 01/02/22 04:50 B-Natriuretic Peptide 636 pg/mL (0-79) H* 01/02/22 04:50 Total Protein 6.5 g/dL (6.4-8.2) 01/02/22 04:50 Albumin 3.5 g/dL (3.4-5.0) 01/02/22 04:50 Globulin 3.0 g/dL (2.5-4.5) 01/02/22 04:50 Albumin/Globulin Ratio 1.2 Ratio (1.1-2.1) 01/02/22 04:50 Specimen Type Catherized urine 12/24/21 17:05 Urine Color Yellow (YELLOW) 12/24/21 17:05 Urine Appearance Clear (CLEAR) 12/24/21 17:05 Urine pH 6.0 (5.0 - 8.0) 12/24/21 17:05 Ur Specific [place] 1.015 (1.000-1.030) 12/24/21 17:05 Urine Protein 4+ (NEGATIVE) 12/24/21 17:05 Urine Glucose (UA) 1+ (NEGATIVE) 12/24/21 17:05 Urine Ketones Negative (NEGATIVE) 12/24/21 17:05 Urine Blood 3+ (NEGATIVE) 12/24/21 17:05 Urine Nitrite Negative (NEGATIVE) 12/24/21 17:05 Urine Bilirubin Negative (NEGATIVE) 12/24/21 17:05 Urine Urobilinogen Normal (NORMAL) 12/24/21 17:05 Ur Leukocyte Esterase Negative (NEGATIVE) 12/24/21 17:05 Urine RBC 5-10 /HPF (0-3) A 12/24/21 17:05 Urine WBC 0-2 /HPF (0-5) 12/24/21 17:05 Ur Squamous Epith Cells Rare /HPF (NEGATIVE) 12/24/21 17:05 Urine Bacteria Trace /HPF (NEGATIVE) 12/24/21 17:05 Ur Culture Indicated? No/not indicated 12/24/21 17:05 Digoxin 0.80 ng/mL (0.9-2) L 12/29/21 11:23 SARS-CoV-2 (PCR) Negative (NEGATIVE) 12/24/21 18:27 - Plan (1) CHF (congestive heart failure) Status: Chronic Qualifiers: Heart failure type: unspecified Heart failure chronicity: acute on chronic Qualified Code(s): I50.9 - Heart failure, unspecified Plan: NORMAL SALINE AT 50 ML/HR, LASIX 40MG IV BID, ALBUMIN 25% DAILY, LEVAQUIN 250MG IV DAILY, ZOSYN 3.375G IV TID, DUONEBS QID, DIGOXIN 0.125G PO DAILY, LOVENOX 60MG SC Q12H, MAG OX 200MG PO QID, FLOMAX 0.4MG PO BID, IMDUR 30MG PO QAM, NEURONTIN 300MG PO HS, FLEXERIL 5MG PO Q8H, POTASSIUM AND MAGNESIUM PROTOCOLS (2) Pneumonia Status: Acute Qualifiers: Pneumonia type: due to unspecified organism Laterality: right Lung location: upper lobe of lung Qualified Code(s): J18.9 - Pneumonia, unspecified organism (3) COPD exacerbation Status: Acute (4) AMS (altered mental status) Status: Acute Qualifiers: Altered mental status type: transient alteration of awareness Qualified Code(s): R40.4 - Transient alteration of awareness (5) Hypokalemia Status: Acute (6) Hypomagnesemia Status: Acute (7) BPH (benign prostatic hyperplasia) Status: Chronic Qualifiers: Lower urinary tract symptom presence: unspecified whether lower urinary tract symptoms present Qualified Code(s): N40.0 - Benign prostatic hyperplasia without lower urinary tract symptoms (8) CAD (coronary artery disease) Status: Chronic Qualifiers: Coronary Disease-Associated Artery/Lesion type: [place] artery [place] vs. transplanted heart: [place] heart Associated angina: unspecified whether angina present Qualified Code(s): I25.10 - Atherosclerotic heart disease of [place] coronary artery without angina pectoris
[2022-01-02] MEDS: NS 1,000 ML IV 1,000 ML IV SCH (13:39)
[2022-01-02] MEDS: ATIVAN INJ 2 MG VIAL IVP PRN ×2 (15:31→22:40)
[2022-01-02] MEDS: CRESTOR TAB 10 MG PO SCH (21:51)
[2022-01-02] MEDS: NEURONTIN CAP 300 MG PO SCH (21:51)
[2022-01-03] MEDS: NS 1,000 ML IV 1,000 ML IV SCH ×2 (03:00→16:48)
[2022-01-03 04:42] LABS: BASOPHILS # (AUTO) 0.1 X10^3/uL (0.0-0.1); BASOPHILS % (AUTO) 2.1 % (0.2-1.0); EOSINOPHILS # (AUTO) 0.1 x10^3/uL (0.0-0.2); HEMATOCRIT 35.8 % (42.0-54.0); HEMOGLOBIN 12.3 g/dL (13.5-18.0); LYMPHOCYTES # (AUTO) 1.1 X10^3/uL (1.3-2.9); LYMPHOCYTES % (AUTO) 17.1 % (21.0-51.0); MEAN CORPUSCULAR HEMOGLOBIN 32.5 pg (27.0-34.0); MEAN CORPUSCULAR HGB CONC 34.4 g/dL (33.0-35.0); MEAN CORPUSCULAR VOLUME 94.5 fL (80.0-100.0); MEAN PLATELET VOLUME 7.9 fL (7.4-11.0); MONOCYTES # (AUTO) 0.7 x10^3/uL (0.3-0.8); MONOCYTES % (AUTO) 10.1 % (0.0-13.0); NEUTROPHILS # (AUTO) 4.5 x10^3/uL (2.2-4.8); NEUTROPHILS % (AUTO) 68.7 % (42.0-75.0); RED BLOOD COUNT 3.79 X10^6/uL (4.7-6.0); RED CELL DISTRIBUTION WIDTH 14.4 % (11.6-16.5); WHITE BLOOD COUNT 6.5 X10^3/uL (3.6-10.0)
[2022-01-03 04:54] LABS: ALANINE AMINOTRANSFERASE 25 Units/L (12-78); ALBUMIN 3.7 g/dL (3.4-5.0); ALKALINE PHOSPHATASE 75 Units/L (46-116); ASPARTATE AMINO TRANSFERASE 28 Units/L (15-37); BLOOD UREA NITROGEN 22 mg/dL (7-18); CALCIUM 9.3 mg/dL (8.5-10.1); CHLORIDE 100 mmol/L (98-107); COR NA(FOR HYPERGLY) 140 mmol/L (136-145); CREATININE 1.74 mg/dL (0.70-1.30); SODIUM 140 mmol/L (136-145); TOTAL PROTEIN 6.5 g/dL (6.4-8.2); eGFR NON BLACK RACES 40 (>60)
[2022-01-03] MEDS: ZOSYN VIAL 3.375 GRAMS 3.375 G in NS 100 ML IV 100 ML IV SCH ×3 (05:39→21:50)
[2022-01-03] MEDS: ATIVAN INJ 2 MG VIAL IVP PRN (06:34)
--- NOTE | 2022-01-03 07:45 | RAD ---
CHEST, 1 VIEWHISTORY:SOBStudy: Single view of the chest.Comparison:January 02, 2022Findings:Cardiomegaly and pulmonary vascular congestion. No focal consolidations, pleural effusions or pneumothorax. Osseous structures demonstrate no acute abnormality.IMPRESSION:1.Cardiomegaly and pulmonary vascular congestion.Electronically signed by: MACARIO PUCKETT (January 03, 2022 07:43:20)
[2022-01-03] MEDS: DUONEB 0.5 MG/3 MG (3 mL) NEB SCH ×4 (08:45→21:10)
[2022-01-03] MEDS: FLOMAX PO SCH ×2 (09:04→21:45)
[2022-01-03] MEDS: PLAVIX PO SCH (09:04)
[2022-01-03] MEDS: LANOXIN or DIGITEK PO SCH (09:05)
[2022-01-03] MEDS: ALBUMIN HUMAN 25%- 100 ML 100 ML IV SCH ×2 (09:06→10:42)
[2022-01-03] MEDS: IMDUR PO SCH (09:09)
[2022-01-03] MEDS: MAG-OX TAB PO SCH ×4 (09:10→21:45)
[2022-01-03] MEDS: LOVENOX INJ 60 MG SYR SC SCH ×2 (09:10→21:10)
[2022-01-03] MEDS: LASIX IVP SCH ×2 (09:13→16:42)
[2022-01-03] MEDS: LEVAQUIN PREMIX IV 250 MG 250 MG/50 ML BAG IV SCH (11:56)
[2022-01-03] MEDS: K-RIDER 10 MEQ/NS 100 ML 10 MEQ/100 ML BAG IV PRN ×2 (15:05→16:43)
[2022-01-03] MEDS: CRESTOR TAB 10 MG PO SCH (21:44)
[2022-01-03] MEDS: NEURONTIN CAP 300 MG PO SCH (21:45)
[2022-01-04 05:00] LABS: BASOPHILS % (AUTO) 0.5 % (0.2-1.0); EOSINOPHILS # (AUTO) 0.1 x10^3/uL (0.0-0.2); EOSINOPHILS % (AUTO) 1.6 % (0.9-2.9); HEMATOCRIT 39.2 % (42.0-54.0); HEMOGLOBIN 13.4 g/dL (13.5-18.0); LYMPHOCYTES # (AUTO) 0.9 X10^3/uL (1.3-2.9); LYMPHOCYTES % (AUTO) 13.6 % (21.0-51.0); MEAN CORPUSCULAR HEMOGLOBIN 32.1 pg (27.0-34.0); MEAN CORPUSCULAR HGB CONC 34.1 g/dL (33.0-35.0); MONOCYTES # (AUTO) 0.8 x10^3/uL (0.3-0.8); NEUTROPHILS % (AUTO) 73.3 % (42.0-75.0); RED BLOOD COUNT 4.17 X10^6/uL (4.7-6.0); RED CELL DISTRIBUTION WIDTH 14.7 % (11.6-16.5); WHITE BLOOD COUNT 6.8 X10^3/uL (3.6-10.0)
[2022-01-04 05:16] LABS: ALANINE AMINOTRANSFERASE 26 Units/L (12-78); ALBUMIN 3.8 g/dL (3.4-5.0); ALKALINE PHOSPHATASE 79 Units/L (46-116); ASPARTATE AMINO TRANSFERASE 28 Units/L (15-37); BLOOD UREA NITROGEN 21 mg/dL (7-18); CALCIUM 9.3 mg/dL (8.5-10.1); CHLORIDE 99 mmol/L (98-107); COR NA(FOR HYPERGLY) 141 mmol/L (136-145); CREATININE 1.59 mg/dL (0.70-1.30); SODIUM 141 mmol/L (136-145); TOTAL PROTEIN 7.1 g/dL (6.4-8.2); eGFR NON BLACK RACES 44 (>60)
[2022-01-04] MEDS: NS 1,000 ML IV 1,000 ML IV SCH ×3 (06:01→20:59)
[2022-01-04] MEDS: ZOSYN VIAL 3.375 GRAMS 3.375 G in NS 100 ML IV 100 ML IV SCH ×3 (06:01→20:59)
[2022-01-04] MEDS: LOVENOX INJ 60 MG SYR SC SCH ×3 (07:08→20:57)
[2022-01-04] MEDS: LEVAQUIN PREMIX IV 250 MG 250 MG/50 ML BAG IV SCH (09:22)
[2022-01-04] MEDS: ALBUMIN HUMAN 25%- 100 ML 100 ML IV SCH (09:24)
[2022-01-04] MEDS: IMDUR PO SCH (09:24)
[2022-01-04] MEDS: FLOMAX PO SCH ×2 (09:24→20:30)
[2022-01-04] MEDS: LANOXIN or DIGITEK PO SCH (09:26)
[2022-01-04] MEDS: MAG-OX TAB PO SCH ×4 (09:27→20:57)
[2022-01-04] MEDS: PLAVIX PO SCH (09:27)
[2022-01-04] MEDS: LASIX IVP SCH ×2 (09:30→16:56)
[2022-01-04] MEDS: DUONEB 0.5 MG/3 MG (3 mL) NEB SCH ×4 (09:50→20:50)
[2022-01-04] MEDS: K-DUR TAB 20 MEQ PO PRN (16:56)
[2022-01-04] MEDS: CRESTOR TAB 10 MG PO SCH (20:30)
[2022-01-04] MEDS: NEURONTIN CAP 300 MG PO SCH (20:58)
[2022-01-04] MEDS: FLEXERIL TAB 10 MG PO PRN (21:00)
[2022-01-04 21:32] VITALS: BMI 25.0
[2022-01-05 04:19] LABS: BASOPHILS % (AUTO) 0.5 % (0.2-1.0); EOSINOPHILS # (AUTO) 0.2 x10^3/uL (0.0-0.2); EOSINOPHILS % (AUTO) 2.3 % (0.9-2.9); HEMATOCRIT 38.1 % (42.0-54.0); LYMPHOCYTES # (AUTO) 1.3 X10^3/uL (1.3-2.9); LYMPHOCYTES % (AUTO) 17.8 % (21.0-51.0); MEAN CORPUSCULAR HEMOGLOBIN 32.4 pg (27.0-34.0); MEAN CORPUSCULAR VOLUME 95.3 fL (80.0-100.0); MEAN PLATELET VOLUME 7.8 fL (7.4-11.0); MONOCYTES # (AUTO) 0.9 x10^3/uL (0.3-0.8); MONOCYTES % (AUTO) 11.6 % (0.0-13.0); NEUTROPHILS % (AUTO) 67.8 % (42.0-75.0); RED CELL DISTRIBUTION WIDTH 14.6 % (11.6-16.5); WHITE BLOOD COUNT 7.4 X10^3/uL (3.6-10.0)
[2022-01-05 04:29] LABS: ALANINE AMINOTRANSFERASE 22 Units/L (12-78); ALBUMIN 3.9 g/dL (3.4-5.0); ALKALINE PHOSPHATASE 72 Units/L (46-116); ASPARTATE AMINO TRANSFERASE 24 Units/L (15-37); BLOOD UREA NITROGEN 21 mg/dL (7-18); CALCIUM 9.4 mg/dL (8.5-10.1); CARBON DIOXIDE 31.7 mmol/L (21-32); CHLORIDE 101 mmol/L (98-107); COR NA(FOR HYPERGLY) 144 mmol/L (136-145); CREATININE 1.72 mg/dL (0.70-1.30); SODIUM 143 mmol/L (136-145); eGFR NON BLACK RACES 40 (>60)
[2022-01-05] MEDS: ZOSYN VIAL 3.375 GRAMS 3.375 G in NS 100 ML IV 100 ML IV SCH ×3 (05:01→21:16)
--- NOTE | 2022-01-05 06:15 | RAD ---
HISTORYShortness of breathSTUDYChest AP [id number]/14/2022FINDINGSTher e is a pacemaker present on the left obscuring small portion of the lateral left upper lobe. Patient is status post median sternotomy and CABG. Heart size is upper limits normal. No congestive heart failure is noted. The lungs are mildly hypoinflated but free of acute infiltrates. There is some subsegmental atelectasis in the right lung base. No pleural effusion or pneumothorax is identified. Bony thorax is unremarkable.IMPRESSIONLungs mildly hypoinflated but free of acute infiltratesSubsegmental atelectasis right lung baseElectronically signed by: BENJAMIN WHITAKER (January 05, 2022 06:14:24)
[2022-01-05] MEDS: LOVENOX INJ 60 MG SYR SC SCH ×2 (08:11→21:15)
[2022-01-05] MEDS: FLOMAX PO SCH ×2 (08:11→21:15)
[2022-01-05] MEDS: LASIX IVP SCH ×2 (08:11→17:29)
[2022-01-05] MEDS: MAG-OX TAB PO SCH ×4 (08:12→21:16)
[2022-01-05] MEDS: PLAVIX PO SCH (08:13)
[2022-01-05] MEDS: IMDUR PO SCH (08:13)
[2022-01-05] MEDS: LANOXIN or DIGITEK PO SCH (08:13)
[2022-01-05] MEDS: ALBUMIN HUMAN 25%- 100 ML 100 ML IV SCH (08:33)
[2022-01-05] MEDS: DUONEB 0.5 MG/3 MG (3 mL) NEB SCH ×4 (09:14→21:00)
[2022-01-05] MEDS: LEVAQUIN PREMIX IV 250 MG 250 MG/50 ML BAG IV SCH (09:33)
--- NOTE | 2022-01-05 11:06 | PCM.PROG ---
Progress Note - Progress Note for Day of Date of Exam: 01/05/22 - Subjective Subjective: IS CURRENTLY BEING TREATED FOR CHF, PNEUMONIA, AND CVA. TODAY, HE IS LYING IN BED WITH EYES CLOSED ON MORNING ROUNDS. HE AWAKENS TO VERBAL STIMULI. HE AKNOWLEDGES OUR PRESENCE, BUT QUICKLY FALLS BACK TO SLEEP. HE HAS HAD NO OVERNIGHT EVENTS. NURSING STAFF REPORTS THAT HE RESTED WELL. THEY REPORT THAT HE IS MORE ALERT DURING THE DAY AND HAS BEEN ABLE TO PARTICIPATE WITH PHYSICAL THERAPY. ON EXAMINATION, HEART IS REGULAR IN RATE AND RHYTHM. BILATERAL LUNGS NOTED WITH DIMINISHED LUNG SOUNDS THROUGHOUT. ABDOMEN IS ROUND, SOFT, AND NON-TENDER WITH NORMAL BOWEL SOUNDS NOTED IN ALL QUADRANTS. BLE NOTED WITH TRACE EDEMA. HIS VITALS THIS MORNING ARE: 98.1-70-20-95%-161/74. HE IS UTILIZING OXYGEN VIA NASAL CANNULA AT 2 LPM. LABS WERE OBTAINED. ABNORMAL LAB VALUES INCLUDE THE FOLLOWING: RBC 4.00, HGB 13.0, HCT 38.1, POTASSIUM 3.2, BUN 21, CREATININE 1.72, GLUCOSE 121, BNP 650. A CHEST XRAY WAS OBTAINED AND REVEALED: Lungs mildly hypoinflated but free of acute infiltrates. Subsegmental atelectasis right lung base. HE IS CURRENTLY RECEIVING NORMAL SALINE AT 50 ML/HR, LEVAQUIN 250MG IV DAILY, ZOSYN 3.375G IV TID, LASIX 40MG IV BID, ALBUMIN 25% IV DAILY, DUONEBS QID, DIGOXIN 0.125G PO DAILY, LOVENOX 60MG SC Q12H, MAG OX 200MG PO QID, FLOMAX 0.4MG PO BID, IMDUR 30MG PO QAM, NEURONTIN 300MG PO HS, FLEXERIL 5MG PO Q8H PRN, COLACE 200MG PO Q12H, MILK OF MAGNESIA 30MG PO Q12H, THE POTASSIUM AND MAGNESIUM PROTOCOLS, AHLSOL 2.5MG IM Q6H PRN, ATIVAN 2MG IV Q6H PRN, ROSUVASTATIN 10MG PO HS. PHYSICAL THERAPY WILL CONTINUE TO WORK WITH PATIENT DAILY. WHEN READY FOR DISCHARGE, PATIENT WILL GO TO [facility] FOR PHYSICAL THERAPY AND REHAB. OTHERWISE, WE PLAN TO FOLLOW UP WITH AM LABS AND CHEST XRAY AND CONTINUE TO MONITOR. TIME SPENT ON CLINICAL ASSESSMENT, REVIEWING LABS AND IMAGING, DECISION MAKING, AND DOCUMENTATION GREATER THAN 45 MINUTES. - Past Medical Family Social History Past Med/Fam/Surg Hx: No changes since H&P Allergies: Allergies No Known Drug Allergies Allergy (Verified 12/25/21 09:23) - Review of Systems ROS: No change since H&P - Vital Signs and I&O's Vital Signs: Temperature 98.1 F Pulse Rate [Left Brachial] 72 Pulse Rate 70 Respiratory Rate 20 Blood Pressure [Left Arm] 161/74 Blood Pressure [Right Arm] 179/81 O2 Sat by Pulse Oximetry 95 Intake and Output: Intake & Output 01/02/22 01/03/22 01/04/22 01/05/22 11:59 11:59 11:59 11:59 Intake Total 785 / 785 710 / 710 1651 / 1651 1540 / 1540 Output Total 400 / 400 300 / 300 Balance 385 / 385 710 / 710 1651 / 1651 1240 / 1240 - Physical Exam Oriented: Person Eyes: Normal Ear: Normal Nose: Normal Throat: Normal Respiratory: Generalized, Diminished Cardiovascular: Edema (TRACE EDEMA TO BLE) : Normal Auscultation: Bowel Sounds: Normal Tenderness: Normal Skin: Normal Musculoskeletal: Normal Psychiatric: Normal Mood Description: Calm Affect: Normal Speech Pattern: Clear - Laboratory and Diagnostics Result Diagrams: 01/05/22 03:21 01/05/22 03:21 Labs: Laboratory WBC 7.4 X10^3/uL (3.6-10.0) 01/05/22 03:21 RBC 4.00 X10^6/uL (4.7-6.0) L 01/05/22 03:21 Hgb 13.0 g/dL (13.5-18.0) L 01/05/22 03:21 Hct 38.1 % (42.0-54.0) L 01/05/22 03:21 MCV 95.3 fL (80.0-100.0) 01/05/22 03:21 MCH 32.4 pg (27.0-34.0) 01/05/22 03:21 MCHC 34.0 g/dL (33.0-35.0) 01/05/22 03:21 RDW 14.6 % (11.6-16.5) 01/05/22 03:21 Plt Count 221 X10^3/uL (150.0-450.0) 01/05/22 03:21 MPV 7.8 fL (7.4-11.0) 01/05/22 03:21 Neut % (Auto) 67.8 % (42.0-75.0) 01/05/22 03:21 Lymph % (Auto) 17.8 % (21.0-51.0) L 01/05/22 03:21 [place] % (Auto) 11.6 % (0.0-13.0) 01/05/22 03:21 Eos % (Auto) 2.3 % (0.9-2.9) 01/05/22 03:21 Baso % (Auto) 0.5 % (0.2-1.0) 01/05/22 03:21 Neut # (Auto) 5.0 x10^3/uL (2.2-4.8) H 01/05/22 03:21 Lymph # (Auto) 1.3 X10^3/uL (1.3-2.9) 01/05/22 03:21 [place] # (Auto) 0.9 x10^3/uL (0.3-0.8) H 01/05/22 03:21 Eos # (Auto) 0.2 x10^3/uL (0.0-0.2) 01/05/22 03:21 Baso # (Auto) 0.0 X10^3/uL (0.0-0.1) 01/05/22 03:21 Absolute Nucleated RBC 0.0 /100WBC 01/05/22 03:21 D-Dimer 3.23 ug/ml (0.0-0.57) H* 12/24/21 16:25 Sodium 143 mmol/L (136-145) 01/05/22 03:21 Corrected Sodium 144 mmol/L (136-145) 01/05/22 03:21 Potassium 3.2 mmol/L (3.5-5.1) L 01/05/22 03:21 Chloride 101 mmol/L (98-107) 01/05/22 03:21 Carbon Dioxide 31.7 mmol/L (21-32) 01/05/22 03:21 BUN 21 mg/dL (7-18) H 01/05/22 03:21 Creatinine 1.72 mg/dL (0.70-1.30) H 01/05/22 03:21 Est GFR (MDRD) Af Amer 49 (>60) L 01/05/22 03:21 Est GFR (MDRD) Non-Af 40 (>60) L 01/05/22 03:21 Glucose 121 mg/dL (65-99) H 01/05/22 03:21 Calcium 9.4 mg/dL (8.5-10.1) 01/05/22 03:21 Corrected Calcium TNP 01/05/22 03:21 Magnesium 2.2 mg/dL (1.7-2.9) 01/04/22 08:09 Total Bilirubin 0.90 mg/dL (0.2-1.0) 01/05/22 03:21 AST 24 Units/L (15-37) 01/05/22 03:21 ALT 22 Units/L (12-78) 01/05/22 03:21 Alkaline Phosphatase 72 Units/L (46-116) 01/05/22 03:21 B-Natriuretic Peptide 650 pg/mL (0-79) H* 01/05/22 03:21 Total Protein 7.0 g/dL (6.4-8.2) 01/05/22 03:21 Albumin 3.9 g/dL (3.4-5.0) 01/05/22 03:21 Globulin 3.1 g/dL (2.5-4.5) 01/05/22 03:21 Albumin/Globulin Ratio 1.3 Ratio (1.1-2.1) 01/05/22 03:21 Specimen Type Catherized urine 12/24/21 17:05 Urine Color Yellow (YELLOW) 12/24/21 17:05 Urine Appearance Clear (CLEAR) 12/24/21 17:05 Urine pH 6.0 (5.0 - 8.0) 12/24/21 17:05 Ur Specific [place] 1.015 (1.000-1.030) 12/24/21 17:05 Urine Protein 4+ (NEGATIVE) 12/24/21 17:05 Urine Glucose (UA) 1+ (NEGATIVE) 12/24/21 17:05 Urine Ketones Negative (NEGATIVE) 12/24/21 17:05 Urine Blood 3+ (NEGATIVE) 12/24/21 17:05 Urine Nitrite Negative (NEGATIVE) 12/24/21 17:05 Urine Bilirubin Negative (NEGATIVE) 12/24/21 17:05 Urine Urobilinogen Normal (NORMAL) 12/24/21 17:05 Ur Leukocyte Esterase Negative (NEGATIVE) 12/24/21 17:05 Urine RBC 5-10 /HPF (0-3) A 12/24/21 17:05 Urine WBC 0-2 /HPF (0-5) 12/24/21 17:05 Ur Squamous Epith Cells Rare /HPF (NEGATIVE) 12/24/21 17:05 Urine Bacteria Trace /HPF (NEGATIVE) 12/24/21 17:05 Ur Culture Indicated? No/not indicated 12/24/21 17:05 Digoxin 1.02 ng/mL (0.9-2) 01/05/22 03:21 SARS-CoV-2 (PCR) Negative (NEGATIVE) 12/24/21 18:27 - Plan (1) CHF (congestive heart failure) Status: Chronic Qualifiers: Heart failure type: unspecified Heart failure chronicity: acute on chronic Qualified Code(s): I50.9 - Heart failure, unspecified Plan: NORMAL SALINE AT 50 ML/HR, LASIX 40MG IV BID, ALBUMIN 25% DAILY, LEVAQUIN 250MG IV DAILY, ZOSYN 3.375G IV TID, DUONEBS QID, DIGOXIN 0.125G PO DAILY, LOVENOX 60MG SC Q12H, MAG OX 200MG PO QID, FLOMAX 0.4MG PO BID, IMDUR 30MG PO QAM, NEURONTIN 300MG PO HS, FLEXERIL 5MG PO Q8H, HALDOL AND ATIVAN PRN, ROSUVASTATIN 10MG PO HS, POTASSIUM AND MAGNESIUM PROTOCOLS (2) Pneumonia Status: Acute Qualifiers: Pneumonia type: due to unspecified organism Laterality: right Lung location: upper lobe of lung Qualified Code(s): J18.9 - Pneumonia, unspecified organism (3) CVA (cerebral vascular accident) Status: Acute Qualifiers: Precerebral and cerebral artery: middle cerebral artery Laterality of affected vessel: left (4) COPD exacerbation Status: Acute (5) AMS (altered mental status) Status: Acute Qualifiers: Altered mental status type: transient alteration of awareness Qualified Code(s): R40.4 - Transient alteration of awareness (6) Hypokalemia Status: Acute (7) Hypomagnesemia Status: Acute (8) BPH (benign prostatic hyperplasia) Status: Chronic Qualifiers: Lower urinary tract symptom presence: unspecified whether lower urinary tract symptoms present Qualified Code(s): N40.0 - Benign prostatic hyperplasia without lower urinary tract symptoms (9) CAD (coronary artery disease) Status: Chronic Qualifiers: Coronary Disease-Associated Artery/Lesion type: [place] artery [place] vs. transplanted heart: [place] heart Associated angina: unspecified whether angina present Qualified Code(s): I25.10 - Atherosclerotic heart disease of [place] coronary artery without angina pectoris
[2022-01-05] MEDS ORDERED: BUTT CREAM (COMPOUND) TOP PRN (11:50)
[2022-01-05] MEDS: NS 1,000 ML IV 1,000 ML IV SCH (17:30)
[2022-01-05] MEDS: POTASSIUM CHLORIDE LIQ 20 MEQ UDC PO PRN (18:00)
[2022-01-05] MEDS: CRESTOR TAB 10 MG PO SCH (21:15)
[2022-01-05] MEDS: NEURONTIN CAP 300 MG PO SCH (21:16)
[2022-01-05] MEDS: FLEXERIL TAB 10 MG PO PRN (21:17)
[2022-01-05] MEDS: K-DUR TAB 20 MEQ PO PRN (21:17)
[2022-01-06] MEDS: NS 1,000 ML IV 1,000 ML IV SCH (01:34)
[2022-01-06] MEDS: ZOSYN VIAL 3.375 GRAMS 3.375 G in NS 100 ML IV 100 ML IV SCH ×2 (05:01→14:06)
[2022-01-06 05:20] LABS: BASOPHILS % (AUTO) 0.6 % (0.2-1.0); EOSINOPHILS # (AUTO) 0.2 x10^3/uL (0.0-0.2); EOSINOPHILS % (AUTO) 2.3 % (0.9-2.9); HEMATOCRIT 37.8 % (42.0-54.0); LYMPHOCYTES # (AUTO) 1.5 X10^3/uL (1.3-2.9); LYMPHOCYTES % (AUTO) 21.8 % (21.0-51.0); MEAN CORPUSCULAR HEMOGLOBIN 32.5 pg (27.0-34.0); MEAN CORPUSCULAR HGB CONC 34.3 g/dL (33.0-35.0); MEAN CORPUSCULAR VOLUME 94.7 fL (80.0-100.0); MEAN PLATELET VOLUME 7.7 fL (7.4-11.0); MONOCYTES # (AUTO) 0.8 x10^3/uL (0.3-0.8); MONOCYTES % (AUTO) 11.2 % (0.0-13.0); NEUTROPHILS # (AUTO) 4.5 x10^3/uL (2.2-4.8); NEUTROPHILS % (AUTO) 64.1 % (42.0-75.0); RED BLOOD COUNT 3.99 X10^6/uL (4.7-6.0); RED CELL DISTRIBUTION WIDTH 14.4 % (11.6-16.5)
[2022-01-06 05:46] LABS: ALANINE AMINOTRANSFERASE 22 Units/L (12-78); ALKALINE PHOSPHATASE 70 Units/L (46-116); ASPARTATE AMINO TRANSFERASE 23 Units/L (15-37); BLOOD UREA NITROGEN 26 mg/dL (7-18); CALCIUM 9.9 mg/dL (8.5-10.1); CARBON DIOXIDE 35.2 mmol/L (21-32); CHLORIDE 98 mmol/L (98-107); COR NA(FOR HYPERGLY) 141 mmol/L (136-145); CREATININE 1.76 mg/dL (0.70-1.30); SODIUM 140 mmol/L (136-145); TOTAL PROTEIN 7.2 g/dL (6.4-8.2); eGFR NON BLACK RACES 39 (>60)
--- NOTE | 2022-01-06 06:03 | RAD ---
HISTORYShortness of breathSTUDYChest AP [id number]/16/2022FINDINGSPati ent is rotated to the left. There is a pacemaker present on the left. Patient is status post median sternotomy and CABG. Heart size is upper limits normal. No congestive heart failure is noted. Lungs are mildly hypoinflated but free of acute infiltrates. No pleural effusions are identified. Bony thorax is unremarkable.IMPRESSIONNo definite acute infiltratesElectronically signed by: BENJAMIN WHITAKER (January 06, 2022 06:02:12)
[2022-01-06] MEDS: DUONEB 0.5 MG/3 MG (3 mL) NEB SCH (09:13)
[2022-01-06] MEDS: FLOMAX PO SCH (09:34)
[2022-01-06] MEDS: LOVENOX INJ 60 MG SYR SC SCH (09:34)
[2022-01-06] MEDS: LEVAQUIN PREMIX IV 250 MG 250 MG/50 ML BAG IV SCH (09:35)
[2022-01-06] MEDS: PLAVIX PO SCH (09:35)
[2022-01-06] MEDS: MAG-OX TAB PO SCH ×2 (09:38→14:00)
[2022-01-06] MEDS: LANOXIN or DIGITEK PO SCH (09:38)
[2022-01-06] MEDS: IMDUR PO SCH (09:38)
[2022-01-06] MEDS: LASIX IVP SCH (09:45)
[2022-01-06] MEDS: ALBUMIN HUMAN 25%- 100 ML 100 ML IV SCH (10:10)
[2022-01-06] MEDS ORDERED: DULCOLAX SUPPOSITORY 10 MG RECTAL ONE (13:04)
[2022-01-06 14:12] VITALS: BP 138/78
== END 2022-01-06 16:30 | DRG 193 ==
LOC: MED/SURG
PROVIDERS: ADMIT Internal Medicine; ATTEND Internal Medicine
DX: Z95.0 Presence of cardiac pacemaker; R41.89 Other symptoms and signs involving cognitive functions and awareness; J18.8 Other pneumonia, unspecified organism; R40.4 Transient alteration of awareness; R26.89 Other abnormalities of gait and mobility; I50.9 Heart failure, unspecified; R94.31 Abnormal electrocardiogram [ECG] [EKG]; Z20.822 Contact with and (suspected) exposure to COVID-19; I63.89 Other cerebral infarction; J44.1 Chronic obstructive pulmonary disease with (acute) exacerbation; E87.6 Hypokalemia; N40.0 Benign prostatic hyperplasia without lower urinary tract symptoms; R53.1 Weakness; I11.0 Hypertensive heart disease with heart failure; R06.02 Shortness of breath; I25.10 Atherosclerotic heart disease of native coronary artery without angina pectoris; E83.42 Hypomagnesemia; R62.7 Adult failure to thrive

== ENCOUNTER 2022-01-11 10:45 | Inpatient (IN) ==
--- NOTE | 2022-01-11 11:11 | DR.GENAD ---
HPI Time Seen Time Seen by Provider: 01/11/22 11:09 Complaint/Symptoms Chief Complaint Doctors Comments: 86 y/o male sent in from [place] for evaluation. Found by nursing staff to be having respiratory distress, hypoxia this am. Pt is awake, but confused. Does not repsond to instructions, nor will answer questions. Pt reportedly recently d/c'd from the hospital with exacerbation of CHF/COPD and a CVA. Pt non verbal, confused, unable to offer complaints. NH reports low grade temp this am, with a pulse ox on RA in the low 80's. Nurses notes reviewed Nurses Notes Review: Yes Source History Provided: Detention Mode of Arrival Mode of Arrival: Stretcher PMH PMH Past Medical History: CHF, COPD, CVA, Hypertension and TX Past Surgical History: Yes Surgical History: Angioplasty/Stents and CABG/Valve Surgery Family History Family Medical History: Heart Failure Social History Do you use any recreational Drugs:: No ROS Review of Systems Unable to Obtain Due To: Altered mental status PE Vital Signs Vitals: Temperature 99.1 F Pulse Rate 96 Respiratory Rate 46 Blood Pressure [Left Arm] 138/78 Blood Pressure 138/56 O2 Sat by Pulse Oximetry 99 General Limitations: Altered Mental Status Head Head Exam: Normal Inspection, Atraumatic and Normocephalic Eyes Eye exam: PERRL and EOMI ENT ENT Exam: Mucous Membranes Moist Neck Neck Exam: Other (+ JVD) Chest Chest Inspection: Normal Inspection Respiratory Respiratory Exam: Respiratory Distress (mild, + bibasilar rales) Cardiovascular Cardiovascular Exam: Irregular Rhythm and Normal Heart Sounds Abdominal Exam Abdominal Exam: Normal Bowel Sounds and Soft; negative Tenderness Extremities Extremities Exam: negative Edema Neurologic Neurological Exam: Other (+ non verbal, + generalized weakness.) Skin Skin Exam: Warm and Dry MDM Differential Diagnosis Differential Diagnosis: CHF. COPD, pneumonia, dehydration. COURSE Treatment Treatment: 86 y/o male, found hypoxic in the NH, sent for evaluation. Pt conf used, unable to offer complaints. W/u initiated. Is oxygenating well on O2 supplementation. 1415 - CXR wtihout acute abnormalities. Labs show BNP elevated to 612 (was > 3K earlier this month). Na is elevated to 150, c/w degree of dehydration. Troponin a bit up at 93. Will admit for further observation and treatment. Discussed with Dr Steinberg, covering, accepts the admission. Will admit for hydration, with D5 1/2 NS. Does not appear to be overtly in failure. ROR Labs Reviewed Laboratory Results Reviewed?: Yes Result Diagrams: 01/11/22 11:10 01/11/22 11:10 Laboratory: WBC 17.4 X10^3/uL (3.6-10.0) H 01/11/22 11:10 RBC 3.77 X10^6/uL (4.7-6.0) L 01/11/22 11:10 Hgb 12.0 g/dL (13.5-18.0) L 01/11/22 11:10 Hct 36.4 % (42.0-54.0) L 01/11/22 11:10 MCV 96.4 fL (80.0-100.0) 01/11/22 11:10 MCH 31.8 pg (27.0-34.0) 01/11/22 11:10 MCHC 33.0 g/dL (33.0-35.0) 01/11/22 11:10 RDW 15.3 % (11.6-16.5) 01/11/22 11:10 Plt Count 338 X10^3/uL (150.0-450.0) 01/11/22 11:10 MPV 8.4 fL (7.4-11.0) 01/11/22 11:10 Neut % (Auto) 88.5 % (42.0-75.0) H 01/11/22 11:10 Lymph % (Auto) 3.5 % (21.0-51.0) L 01/11/22 11:10 [place] % (Auto) 7.6 % (0.0-13.0) 01/11/22 11:10 Eos % (Auto) 0.1 % (0.9-2.9) L 01/11/22 11:10 Baso % (Auto) 0.3 % (0.2-1.0) 01/11/22 11:10 Neut # (Auto) 15.4 x10^3/uL (2.2-4.8) H 01/11/22 11:10 Lymph # (Auto) 0.6 X10^3/uL (1.3-2.9) L 01/11/22 11:10 [place] # (Auto) 1.3 x10^3/uL (0.3-0.8) H 01/11/22 11:10 Eos # (Auto) 0.0 x10^3/uL (0.0-0.2) 01/11/22 11:10 Baso # (Auto) 0.1 X10^3/uL (0.0-0.1) 01/11/22 11:10 Absolute Nucleated RBC 0.0 /100WBC 01/11/22 11:10 Sample Site Rbra 01/11/22 11:08 ABG pH 7.490 (7.35-7.45) H 01/11/22 11:08 ABG pCO2 40.0 mmHg (35.0-45.0) 01/11/22 11:08 ABG pO2 45.0 mmHg (80.0-100.0) L* 01/11/22 11:08 ABG HCO3 30.5 mmol/L (22-26) H* 01/11/22 11:08 ABG O2 Saturation 85.0 % (90-100) L 01/11/22 11:08 ABG Base Excess 6.6 mmol/L (-2.0-2.0) H 01/11/22 11:08 Brendan Test N/a 01/11/22 11:08 A-a Gradient 105.0 mmHg 01/11/22 11:08 FiO2 28.0 01/11/22 11:08 Blood Gas Comments Pt katina well elj cdn 01/11/22 11:08 Sodium 150 mmol/L (136-145) H* 01/11/22 11:10 Corrected Sodium 152 mmol/L (136-145) H 01/11/22 11:10 Potassium 4.7 mmol/L (3.5-5.1) 01/11/22 11:10 Chloride 112 mmol/L (98-107) H 01/11/22 11:10 Carbon Dioxide 28.3 mmol/L (21-32) 01/11/22 11:10 BUN 52 mg/dL (7-18) H 01/11/22 11:10 Creatinine 1.88 mg/dL (0.70-1.30) H 01/11/22 11:10 Est GFR (MDRD) Af Amer 44 (>60) L 01/11/22 11:10 Est GFR (MDRD) Non-Af 36 (>60) L 01/11/22 11:10 Glucose 181 mg/dL (65-99) H 01/11/22 11:10 Calcium 10.0 mg/dL (8.5-10.1) 01/11/22 11:10 Corrected Calcium TNP 01/11/22 11:10 Total Bilirubin 1.50 mg/dL (0.2-1.0) H 01/11/22 11:10 AST 20 Units/L (15-37) 01/11/22 11:10 ALT 15 Units/L (12-78) 01/11/22 11:10 Alkaline Phosphatase 84 Units/L (46-116) 01/11/22 11:10 Creatine Kinase 35 Units/L (39-308) L 01/11/22 11:10 CK-MB (CK-2) 1.0 ng/mL (0-4.0) 01/11/22 11:10 CK/CKMB % Calc 2.9 % (<4) 01/11/22 11:10 Troponin I High Sens 93.1 ng/L (4.0-60.0) H* 01/11/22 11:10 B-Natriuretic Peptide 612 pg/mL (0-79) H* 01/11/22 11:10 Total Protein 7.4 g/dL (6.4-8.2) 01/11/22 11:10 Albumin 3.5 g/dL (3.4-5.0) 01/11/22 11:10 Globulin 3.9 g/dL (2.5-4.5) 01/11/22 11:10 Albumin/Globulin Ratio 0.9 Ratio (1.1-2.1) L 01/11/22 11:10 Lipase 133 Units/L (73-393) 01/11/22 11:10 Specimen Type Catherized urine 01/11/22 11:48 Urine Color Straw (YELLOW) 01/11/22 11:48 Urine Appearance Clear (CLEAR) 01/11/22 11:48 Urine pH 6.0 (5.0 - 8.0) 01/11/22 11:48 Ur Specific [place] 1.020 (1.000-1.030) 01/11/22 11:48 Urine Protein 3+ (NEGATIVE) 01/11/22 11:48 Urine Glucose (UA) Negative (NEGATIVE) 01/11/22 11:48 Urine Ketones Negative (NEGATIVE) 01/11/22 11:48 Urine Blood 3+ (NEGATIVE) 01/11/22 11:48 Urine Nitrite Negative (NEGATIVE) 01/11/22 11:48 Urine Bilirubin Negative (NEGATIVE) 01/11/22 11:48 Urine Urobilinogen Normal (NORMAL) 01/11/22 11:48 Ur Leukocyte Esterase Negative (NEGATIVE) 01/11/22 11:48 Urine RBC 3-5 /HPF (0-3) A 01/11/22 11:48 Urine WBC 3-5 /HPF (0-5) 01/11/22 11:48 Ur Squamous Epith Cells Rare /HPF (NEGATIVE) 01/11/22 11:48 Amorphous Sediment 1+ /HPF (NEGATIVE) 01/11/22 11:48 Urine Bacteria Trace /HPF (NEGATIVE) 01/11/22 11:48 Hyaline Casts Few /LPF (NEGATIVE) 01/11/22 11:48 Granular Casts Few /LPF (NEGATIVE) 01/11/22 11:48 Urine Mucus Few /HPF (NEGATIVE) 01/11/22 11:48 Ur Culture Indicated? No/not indicated 01/11/22 11:48 SARS-CoV-2 (PCR) Negative (NEGATIVE) 01/11/22 13:01 EKG Rate: 98 [place]: Normal Rhythm: Afib Block: LBBB (incomplete) Hypertrophy: LVH ST: Nonsp Opioid Opioid Risk Tool Age (Jose Manuel box if 16-45): No History of Preadolescent Sexual Abuse: No Total: 0 Total Score Risk Category: Low Risk Copyright: Marcos LOCKHART predicting aberrant behaviors Diagnosis Discharge Problem: Hypernatremia Dyspnea Qualifiers: Dyspnea type: unspecified Qualified Code(s): R06.00 - Dyspnea, unspecified
[2022-01-11 11:13] LABS: ABG BASE EXCESS 6.6 mmol/L (-2.0-2.0)
[2022-01-11 11:14] LABS: ABG HCO3 30.5 mmol/L (22-26)
[2022-01-11 11:18] VITALS: BMI 24.0
[2022-01-11 11:30] LABS: BASOPHILS # (AUTO) 0.1 X10^3/uL (0.0-0.1); BASOPHILS % (AUTO) 0.3 % (0.2-1.0); EOSINOPHILS % (AUTO) 0.1 % (0.9-2.9); HEMATOCRIT 36.4 % (42.0-54.0); LYMPHOCYTES # (AUTO) 0.6 X10^3/uL (1.3-2.9); LYMPHOCYTES % (AUTO) 3.5 % (21.0-51.0); MEAN CORPUSCULAR HEMOGLOBIN 31.8 pg (27.0-34.0); MEAN CORPUSCULAR VOLUME 96.4 fL (80.0-100.0); MEAN PLATELET VOLUME 8.4 fL (7.4-11.0); MONOCYTES # (AUTO) 1.3 x10^3/uL (0.3-0.8); MONOCYTES % (AUTO) 7.6 % (0.0-13.0); NEUTROPHILS # (AUTO) 15.4 x10^3/uL (2.2-4.8); NEUTROPHILS % (AUTO) 88.5 % (42.0-75.0); RED BLOOD COUNT 3.77 X10^6/uL (4.7-6.0); RED CELL DISTRIBUTION WIDTH 15.3 % (11.6-16.5); WHITE BLOOD COUNT 17.4 X10^3/uL (3.6-10.0)
[2022-01-11 12:09] LABS: BILIRUBIN,URINE NEGATIVE (NEGATIVE); BLOOD/HEMOGLOBIN,URINE 3+ (NEGATIVE); GLUCOSE, URINE NEGATIVE (NEGATIVE); KETONES,URINE NEGATIVE (NEGATIVE); LEUKOCYTE ESTERASE ,URINE NEGATIVE (NEGATIVE); NITRITES,URINE NEGATIVE (NEGATIVE); PROTEIN,URINE 3+ (NEGATIVE); UROBILINOGEN,URINE NORMAL (NORMAL)
[2022-01-11 12:09] LABS: ALANINE AMINOTRANSFERASE 15 Units/L (12-78); ALBUMIN 3.5 g/dL (3.4-5.0); ALKALINE PHOSPHATASE 84 Units/L (46-116); ASPARTATE AMINO TRANSFERASE 20 Units/L (15-37); BLOOD UREA NITROGEN 52 mg/dL (7-18); CARBON DIOXIDE 28.3 mmol/L (21-32); CHLORIDE 112 mmol/L (98-107); CKMB % 2.9 % (<4); COR NA(FOR HYPERGLY) 152 mmol/L (136-145); CREATINE KINASE 35 Units/L (39-308); CREATININE 1.88 mg/dL (0.70-1.30); LIPASE 133 Units/L (73-393); TOTAL PROTEIN 7.4 g/dL (6.4-8.2); eGFR NON BLACK RACES 36 (>60)
[2022-01-11 12:14] LABS: APPEARANCE,URINE CLEAR (CLEAR); COLOR,URINE STRAW (YELLOW)
[2022-01-11 12:15] LABS: SODIUM 150 mmol/L (136-145)
[2022-01-11 12:31] LABS: BACTERIA,URINE TRACE /HPF (NEGATIVE); SQUAMOUS EPITHELIAL CELL,UR RARE /HPF (NEGATIVE)
[2022-01-11 12:32] LABS: GRANULAR CASTS,URINE FEW /LPF (NEGATIVE); HYALINE CASTS, URINE FEW /LPF (NEGATIVE)
--- NOTE | 2022-01-11 14:47 | RAD ---
HISTORYHypoxia COPDSTUDYAP [id number]/[id number] upper-normal heart size with pacemaker and sternal wires. The lungs remain essentially clear and no definite edema, consolidation or developing pleural fluid is demonstrated.IMPRESSIONNo change or acute abnormality identified.Electronically signed by: HERNESTO LITTLE (January 11, 2022 14:45:47)
[2022-01-11] MEDS ORDERED: ULTRAM PO PRN (15:24)
[2022-01-11] MEDS ORDERED: D5 1/2 NS 1,000 ML 1,000 ML IV SCH (16:00)
[2022-01-11 16:13] LABS: CKMB % 3.1 % (<4); CREATINE KINASE 32 Units/L (39-308); CREATINE KINASE MB < 1.0 ng/mL (0-4.0)
[2022-01-11] MEDS: MAG-OX TAB PO SCH ×2 (16:28→21:56)
[2022-01-11] MEDS ORDERED: PHARMACY CONSULT LTC MEDICATIONS XX SCH (17:00)
[2022-01-11] MEDS ORDERED: ACCUNEB 1.25 MG NEBULE ONE (20:12)
[2022-01-11] MEDS ORDERED: K-DUR TAB 20 MEQ PO SCH (21:00)
[2022-01-11] MEDS ORDERED: CRESTOR TAB 10 MG PO SCH (21:00)
[2022-01-11] MEDS ORDERED: LASIX PO SCH (21:00)
[2022-01-11] MEDS ORDERED: NEURONTIN CAP 300 MG PO SCH (21:00)
[2022-01-11] MEDS ORDERED: FLOMAX PO SCH (21:00)
[2022-01-11] MEDS ORDERED: COLACE CAP 100 MG PO SCH (21:00)
[2022-01-11 22:00] LABS: CKMB % 1.5 % (<4); CREATINE KINASE 66 Units/L (39-308); CREATINE KINASE MB < 1.0 ng/mL (0-4.0)
[2022-01-11] MEDS ORDERED: ACCUNEB 1.25 MG NEBULE IN SCH (22:00)
[2022-01-11] MEDS ORDERED: VALIUM INJ IVP PRN (23:15)
[2022-01-11 23:49] LABS: ABG BASE EXCESS 5.5 mmol/L (-2.0-2.0); ABG HCO3 29.9 mmol/L (22-26)
[2022-01-11 23:50] LABS: ABG ALLEN TEST POS
[2022-01-12] MEDS ORDERED: LOPRESSOR INJ 5 MG AMP IVP PRN (00:06)
[2022-01-12] MEDS ORDERED: LOPRESSOR INJ 5 MG AMP ONE (00:27)
[2022-01-12 01:50] VITALS: BP 101/55
[2022-01-12] MEDS ORDERED: IMDUR PO SCH (09:00)
[2022-01-12] MEDS ORDERED: PLAVIX PO SCH (09:00)
[2022-01-12] MEDS ORDERED: LANOXIN or DIGITEK PO SCH (09:00)
== END 2022-01-12 02:30 | disposition short-term general hospital (02) | DRG 641 ==
LOC: ER 10:46 → MED/SURG 15:07
PROVIDERS: ADMIT Obstetrics & Gynecology Obstetrics; ATTEND Internal Medicine